=== PATIENT | male | born 1980 | race Caucasian/White ===

== ENCOUNTER 2016-10-23 08:58 | Emergency (ER) | payer OTHER ==
--- NOTE | 2016-10-23 13:12 | ED NURSING NOTES ---
Clinical Report - Nurses [facility] [address] [place] [address] 10/23/2016 8:59 Patient: ARMAND OAKLEY TRIAGE Triage time 09:12. Acuity: LEVEL 3. Alert. No acute distress. --09:21 Bryce Cisneros R.N. 09:11 10/23/16. BP: 173/109. HR: 98. RR: 20. O2 saturation: 98%. Temp: 98.5 F. --09:21 Bryce Cisneros R.N. 09:23 10/23/16. Pain level now 06/17. --09:23 Bryce Cisneros R.N. Chief Complaint: VOMITING. --13:38 Bryce Cisneros R.N. Weight: 58.9 kg stated. Height/Length: 69 inches Per Patient. BMI: 19.2. --09:20 Bryce Cisneros R.N. Medications Dilaudid Oral. Promethazine HCl Oral. Reglan Oral. Zofran ODT Oral. --09:19 Bryce Cisneros R.N. B 12. --09:19 Bryce Cisneros R.N. LORazepam Oral. --09:20 Bryce Cisneros R.N. Allergies Acetaminophen. NSAIDs. Sulfa Antibiotics. --09:19 Bryce Cisneros R.N. History Arrived by private vehicle. Historian: patient and family. ( Lap lysis of adhesions on 09/21/2016 at [facility]. States has had severe nausea and vomiting for past 3 days. Until 3 days ago was "Normal for me," which is daily vomiting. Reportedly had several feet of bowel removed for carcinoma 4 years ago.). Onset. (3 days ago). ( Worse since 2am). He has had nausea and vomiting. 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 SOCIAL HX: Former smoker. No alcohol use. FALL RISK ASSESSMENT: Fall risk assessment completed. No fall risk identified. FUNCTIONAL ASSESSMENT: Functional assessment: no impairments noted. LEARNING NEEDS ASSESSMENT: The learning needs assessment revealed no barriers. SKIN INTEGRITY ASSESSMENT: Skin integrity risk assessment completed. No skin integrity risk identified. --09: Bryce Cisneros R.N. PROBLEMS: Intestinal CA with METS. Diarrhea. Anxiety Reaction. Leukocytosis. Hypokalemia. Abnormal EKG. Abnormal Test. Palpitations. B12 deficiency. Crohn's Disease. Pancreatic Cancer. Hypertension. Back Pain. Tetanus Status. --: Bryce Cisneros R.N. Narcotic Withdrawal [RuleOut]. Abdominal Pain [RuleOut]. Vomiting [RuleOut]. --:20 Bryce Cisneros R.N. Interventions ID band on patient. To room. --09: Bryce Cisneros R.N. PHYSICAL ASSESSMENT ( patient states unable to void at this time). GENERAL / NEURO / PSYCH: Alert. Oriented X 4. Appears in pain and anxious. RESPIRATORY: Respirations not labored. GI / : Abdominal tenderness. Guarding present. Bowel sounds within normal limits. SKIN: Skin is warm and dry. --09:23 Bryce Cisneros R.N. NURSING PROGRESS NOTES Patient gowned. Patient identifiers checked. Call light placed in reach. Bed placed in lowest position. --09:23 Bryce Cisneros R.N. 10:12 10/23/2016 Site #1 started via IV in the right forearm with an 20g angiocath using a topical anesthetic and 1% intra-dermal lidocaine, with aseptic technique and good blood return; one attempt. Blood drawn: rainbow set. Labeled in the presence of the patient and sent to the lab. Saline lock flushed with 10 mL saline. --10:22 Bryce Cisneros R.N. 10:18 10/23/2016 HALDOL (Haloperidol Lactate) IVP 4 mg given over 2 minute(s) via site #1. --10:23 Bryce Cisneros R.N. 10:22 10/23/2016 Started bag #1 1000 mL IV Fluids IV NS (Saline); at 1000 mL/hr over 1 hour(s) via site #1 --10:22 Bryce Cisneros R.N. 10:22 10/23/2016 Benadryl (DiphenhydrAMINE HCl) IVP 50 mg given over 2 minute(s) via site #1. --10:22 Bryce Cisneros R.N. 11:03 10/23/2016 IV Fluids IV NS Discontinued: bag #1 completed. Total amount infused: 1000 mL. --11:03 Bryce Cisneros R.N. 11:04 10/23/2016 Started bag #2 1000 mL IV Fluids IV NS (Saline); at 1000 mL/hr over 1 hour(s) via site #1 --11:04 Bryce Cisneros R.N. 11:58 10/23/2016 Started bag #1 1000 mL IV Fluids IV NS (Saline); at 1000 mL/hr over 1 hour(s) via site #1 --11:58 Bryce Cisneros R.N. 12:30. ( Patient now shaking vigorously and states he believes Lorazapam would help.). --13:02 Bryce Cisneros R.N. 11:56 10/23/2016 IV Fluids IV NS Discontinued: bag #2 infused. Total amount infused: 1000 mL. IV patency established. IV site checked: no pain, redness, or swelling. IV flushed thoroughly. --13:41 Moncho Vega R.N. 11:58 10/23/2016 Started IV Fluids IV NS (Saline); at 1000 mL/hr over 60 minute(s) via site #1. Allergies verified and confirmed 5 rights. IV patency established. IV site checked: no pain, redness, or swelling. IV flushed thoroughly pre- and post-medication administration. --13:40 Moncho Vega R.N. <<STRICKEN ENTRY-- 12:58 10/23/2016 Started IV Fluids IV NS (Saline); at 1000 mL/hr over 60 minute(s) via site #1. Allergies verified and confirmed 5 rights. IV patency established. IV site checked: no pain, redness, or swelling. IV flushed thoroughly pre- and post-medication administration. --13:40 Moncho Vega R.N. --END STRIKE>> Correction. --13:40 Moncho Vega R.N. 13:00 10/23/2016 Site #1 removed upon discharge. Catheter intact. Manual pressure, pressure dressing and bandaid applied. --13:31 Moncho Vega R.N. 13:00 10/23/2016 IV Fluids IV NS Discontinued: bag #3 infused upon discharge. Total amount infused: 1000 mL. IV patency established. IV site checked: no pain, redness, or swelling. IV flushed thoroughly. --13:39 Moncho Vega R.N. 13:15 10/23/2016 Lorazepam (LORazepam) IVP 1 mg given over 2 minute(s) via site #1. Allergies verified, confirmed 5 rights and sedative warning given to the patient. IV patency established. IV site checked: no pain, redness, or swelling. IV flushed thoroughly pre- and post-medication administration. IVP given by RN. --13:30 Moncho Vega R.N. Intake & Output IV fluids: 3000 mL. --13:26 Bryce Cisneros R.N. Urine, with return of 100 mL adalberto-colored urine. --13:27 Bryce Cisneros R.N. DISPOSITION / DISCHARGE 13:27 10/23/16. BP: 149/82. HR: 90. RR: 20. O2 saturation: 98%. Temp: 99 F. Pain level now 8/10. --13:28 Bryce Cisneros R.N. Condition at departure: improved. No learning barriers present. Discharge instructions provided and reviewed with the patient. Patient verbalized understanding. Written instructions provided in [place]. The patient was discharged by the physician. He was discharged home. --13:37 Bryce Cisneros R.N. 13:20. Reviewed medication(s) (prescription given to pt). --13:51 Moncho Vega R.N. Departure time: 1320. --13:51 Moncho Vega R.N. Locked/Released at 10/23/2016 13:52 by Moncho Vega R.N.
--- NOTE | 2016-10-23 13:12 | ED ORDER SUMMARY ---
..... Patient: ARMAND OAKLEY OrderSheet [facility] VisitID: [id number] [address] [place] [address] 36y, M Registration Date/Time: 10/23/2016 ORDER SHEET Weight: 58.9 kg (stated) Allergies: Acetaminophen, NSAIDs, Sulfa Antibiotics GENERAL ORDERS: CBC w Diff Urgent (09:49 10/23/2016 Abril OCONNOR) (Ack 10:07 Kenzie) (13:01 GMarshall R.N.) CMP Urgent (:49 10/23/2016 Abril OCONNOR) (Ack 10:07 Kenzie) (13:01 GMarshall R.N.) UA-Culture if indicated Urgent (:10/23/2016 Abril OCONNOR) (Ack 10:07 Kenzie) (13:01 GMarshall R.N.) Lipase Urgent (:10/23/2016 Abril OCONNOR) (Ack 10:07 Kenzie) (13:01 GMarshall R.N.) MEDICATION ORDERS: IV FLUIDS: IV NS : initial bolus none -, then 1000 mL/hr for 2h (NOW); Urgent (2 liters of NS) (09:48 10/23/2016 Abril OCONNOR) (Ack 9:50 GMarshall R.N.) (10:22 GMarshall R.N.) Benadryl IV 50 mg (NOW) (09:48 10/23/2016 Abril OCONNOR) (Ack 9:50 GMarshall R.N.) (10:22 GMarshall R.N.) Haldol IV 4 mg (NOW) (09:49 10/23/2016 Abril OCONNOR) (Ack 9:50 GMarshall R.N.) (10:23 GMarshall R.N.) IV NS : initial bolus none -, then 1000 mL/hr for 1h (NOW); Urgent (11:26 10/23/2016 Abril OCONNOR) (11:58 GMarshall R.N.) LORazepam IV 1 mg (NOW) (13:08 10/23/2016 Abril OCONNOR) (13:30 JRomanelli R.N.) ORDER SHEET NOTES: [Electronically signed by Moncho Vega R.N. (13:52 10/23/2016)] [Electronically signed by Kevyn Castillo MD (12:34 10/24/2016)] [Electronically locked/signed by Moncho Vega R.N. (13:52 10/23/2016)]
--- NOTE | 2016-10-23 13:12 | ED ORDER SUMMARY ---
..... Patient: ARMAND OAKLEY OrderSheet [facility] VisitID: [id number] [address] [place] [address] 36y, M Registration Date/Time: 10/23/2016 ORDER SHEET Weight: 58.9 kg (stated) Allergies: Acetaminophen, NSAIDs, Sulfa Antibiotics GENERAL ORDERS: CBC w Diff Urgent (09:49 10/23/2016 Abril OCONNOR) (Ack 10:07 Kenzie) (13:01 GMarshall R.N.) CMP Urgent (:49 10/23/2016 Abril OCONNOR) (Ack 10:07 Kenzie) (13:01 GMarshall R.N.) UA-Culture if indicated Urgent (:10/23/2016 Abril OCONNOR) (Ack 10:07 Kenzie) (13:01 GMarshall R.N.) Lipase Urgent (:10/23/2016 Abril OCONNOR) (Ack 10:07 Kenzie) (13:01 GMarshall R.N.) MEDICATION ORDERS: IV FLUIDS: IV NS : initial bolus none -, then 1000 mL/hr for 2h (NOW); Urgent (2 liters of NS) (09:48 10/23/2016 Abril OCONNOR) (Ack 9:50 GMarshall R.N.) (10:22 GMarshall R.N.) Benadryl IV 50 mg (NOW) (09:48 10/23/2016 Abril OCONNOR) (Ack 9:50 GMarshall R.N.) (10:22 GMarshall R.N.) Haldol IV 4 mg (NOW) (09:49 10/23/2016 Abril OCONNOR) (Ack 9:50 GMarshall R.N.) (10:23 GMarshall R.N.) IV NS : initial bolus none -, then 1000 mL/hr for 1h (NOW); Urgent (11:26 10/23/2016 Abril OCONNOR) (11:58 GMarshall R.N.) LORazepam IV 1 mg (NOW) (13:08 10/23/2016 Abril OCONNOR) (13:30 JRomanelli R.N.) ORDER SHEET NOTES: [Electronically signed by Moncho Vega R.N. (13:52 10/23/2016)] [Electronically signed by Kevyn Castillo MD (12:34 10/24/2016)] [Electronically locked/signed by Moncho Vega R.N. (13:52 10/23/2016)]
--- NOTE | 2016-10-23 13:12 | ED CLINICAL REPORT ---
Clinical Report - Physicians/Mid Levels [facility] [address] [place] [address] 10/23/2016 8:59 Patient: ARMAND BALDERAS Time Seen: 09:41. Arrived- By private vehicle. Historian- patient. HISTORY OF PRESENT ILLNESS Chief Complaint: ABDOMINAL PAIN and VOMITING. At its maximum, severity described as severe. When seen in the E.D., severity described as moderate. Modifying factors. Not worsened by anything. Not relieved by anything. This started 3 - 4 days ago and is still present. It was abrupt in onset. It is described as "pain" and it is described as located in the right upper quadrant and in the suprapubic area. The patient has had nausea. He has had vomiting (8 times today, 10 - 12 times yesterday). He has had diarrhea (2 times today, 0 times yesterday). (Vomiting meds. Dilaudid Zofran and Regtlan). Similar symptoms previously: REVIEW OF SYSTEMS No constipation, black stools or stools or difficulty with urination or urination. No pain with urination, bloody stools or stools, fever or double vision. No ear pain, sore throat, chest pain, cough or difficulty breathing. No constipation, urinary frequency or skin rash. The patient has had abdominal pain, diarrhea, nausea and vomiting. PAST HISTORY PCP: Jaron Rodríguez (Oncologist) PAST HISTORY Anxiety Reaction. Crohn's Disease. 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 Prostatitis Back Pain. SOCIAL HISTORY Former smoker. ADDITIONAL NOTES The nursing notes have been reviewed. PHYSICAL EXAM Vital Signs: 10/23/2016 13:27 BP: 149/82. HR: 90. RR: 20. O2 saturation: 98%. Temp: 99 F. 10/23/2016 09:11 BP: 173/109. HR: 98. RR: 20. O2 saturation: 98%. Temp: 98.5 F. Appearance: Alert. Patient in severe distress. Eyes: Eyes normal inspection. ENT: Dry mucous membranes present. Neck: Normal inspection. CVS: Normal heart rate and rhythm. Heart sounds normal. Abdomen: Tenderness in the left side of the abdomen and suprapubic area (Marked tenderness with skin palpation). Back: Normal inspection. : Normal genitalia. Testes descended. Skin: Skin warm. Normal skin color. Extremities: Extremities exhibit normal ROM. Neuro: No alteration in mental status. LABS, X-RAYS, AND EKG Laboratory Tests: UA-Culture if indicated: (AMANDA: 10/23/2016 12:05) ( [facility] 10/23/2016 12:29) Final results Test Result Flag Units (Reference) URINE COLOR YELLOW URINE APPEARANCE CLEAR URINE GLUCOSE NEGATIVE (NEGATIVE) URINE BILIRUBIN NEGATIVE (NEGATIVE) URINE KETONE 1+ (NEGATIVE) URINE SPECIFIC GRAVITY 1.025 (1.010-1.030) URINE PH 6.0 (5.0-8.0) URINE PROTEIN NEGATIVE (NEGATIVE) URINE UROBILINOGEN 0.2 EU/dL (0.2-1.0) URINE NITRITE NEGATIVE (NEGATIVE) URINE BLOOD NEGATIVE (NEGATIVE) URINE LEUK ESTERASE NEGATIVE (NEGATIVE) URINE RBC NONE SEEN rbc/hpf (0-1) URINE WBC 0-1 wbc/hpf (0-1) URINE EPITHELIAL CELLS 0-1 EPI/hpf (0-5) URINE BACTERIA NONE SEEN (NONE SEEN) URINE COMMENT CULT NOT INDICATED 1+ MUCOUSURINE CULTURES ARE SET-UP BASED ON THE FOLLOWING CRITERIA:POSITIVE NITRITEPOSITIVE LEUKOCYTE ESTERASEGREATER THAN 10 WHITE BLOOD CELLSMODERATE (2+) OR GREATER BACTERIA CBC w Diff: (AMANDA: 10/23/2016 10:10) ( [facility] 10/23/2016 10:50) Final results Test Result Flag Units (Reference) WHITE BLOOD COUNT 10.4 K/uL (4.5-11.5) RED BLOOD COUNT 4.94 M/uL (4.50-5.90) HEMOGLOBIN 13.7 gm/dL (13.5-17.5) HEMATOCRIT 42.8 % (41.0-53.0) MEAN CELL VOLUME 87 fL (80-100) MEAN CORPUSCULAR HGB 28 pg (26-34) MEAN CORPUSCULAR HGB CONC 32 g/dL (31-37) RED CELL DISTRIBUTION WIDTH 14.3 % (11.6-14.8) PLATELET COUNT 281 K/uL (150-400) POLY % 80 H % (50-75) BAND % 0 % (0-8) LYMPH 16 L % (25-40) MONO 2 L % (3-14) EOSINOPHIL % 2 % (0-4) BASOPHIL % 0 % (0-2) METAMYELOCYTE % 0 % (0-1) MYELOCYTE 0 % (0-1) OTHER CELL TYPE 0 ANISOCYTOSIS 1+ CMP: (AMANDA: 10/23/2016 10:10) ( [facility] 10/23/2016 10:34) Final results Test Result Flag Units (Reference) GLUCOSE 106 mg/dL (70-110) BUN 8 mg/dL (7-18) CREATININE 0.9 mg/dL (0.6-1.3) Estimated GFR >60 mL/min Estimated GFR- >60 mL/min Note: Persistent reduction over 3 months in eGFR<60 mL/min/1.73 m2 defines CKD. Patients with eGFR values>=60 mL/min/1.73 m2 may also have CKD if evidence ofpersistent proteinuria. Additional information may be foundat www.kidney.org. SODIUM 130 L mmol/L (136-145) POTASSIUM 3.6 mmol/L (3.5-5.1) CHLORIDE 102 mmol/L (98-107) CARBON DIOXIDE 27 mmol/L (21-32) CALCIUM 9.0 mg/dL (8.5-10.1) TOTAL PROTEIN 7.5 g/dL (6.4-8.2) ALBUMIN 4.4 g/dL (3.3-5.0) BILIRUBIN, TOTAL 0.4 mg/dL (0.0-1.0) ALKALINE PHOSPHATASE 72 U/L (46-116) AST (SGOT) 13 L U/L (15-37) ALT (SGPT) 20 U/L (12-78) LIPASE 83 U/L (73-393) . PROGRESS AND PROCEDURES Course of Care: Mr. Balderas has recurrent episodes of abdominal pain and diarrhea. He is given 3 liters of NS and now is fully rehydrated. His pain is better after Benadyl and Haldol. Ultimately he was given Lorazepam when it was discovered that he was our of his chronic Lorazepam. 13:08 10/23/16. Recheck - I am out of lorazepam. Disposition: Discharged. Condition: improved. CLINICAL IMPRESSION Abdominal pain of unknown cause. INSTRUCTIONS (ASK YOUR DR ABOUT THE LORAZEPAM YOU MAY WANT TO TAPER OFF THE LORAZEPAM RECHECK IF STILL VOMITING OR HAVING ABDOMINAL PAIN IN 12 -24 HOURS.). Prescription Medications: Phenergan 25 mg tablets: Take 1 tablet orally every 6 hours as needed for nausea and vomiting. Dispense fifteen (15). No refills. Substitution is permissible. Lorazepam 1 mg: take 1 orally. Dispense five (5). No refill. Follow-up: Follow up with your doctor néstor Sunday as scheduled. Understanding of the discharge instructions verbalized by patient. (Electronically signed by Kevyn Castillo MD 10/24/2016 12:34)
--- NOTE | 2016-10-24 12:35 | ED DISCHARGE INSTRUCTIONS ---
Patient: ARMAND OAKLEY General Instructions [facility] VisitID: [id number] [address] [place] [address] 36y, M Registration Date/Time: 10/23/2016 Abdominal pain of unknown cause. INSTRUCTIONS (ASK YOUR DR ABOUT THE LORAZEPAM YOU MAY WANT TO TAPER OFF THE LORAZEPAM RECHECK IF STILL VOMITING OR HAVING ABDOMINAL PAIN IN 12 -24 HOURS.). Prescription Medications: Phenergan 25 mg tablets: Take 1 tablet orally every 6 hours as needed for nausea and vomiting. Dispense fifteen (15). No refills. Substitution is permissible. Lorazepam 1 mg: take 1 orally. Dispense five (5). No refill. Follow-up: Follow up with your doctor Sunday as scheduled. Understanding of the discharge instructions verbalized by patient. ADDITIONAL INFORMATION Abdominal Pain,Uncertain Cause [Male] Based on your visit today, the exact cause of your abdominalpain is not clear. Your exam and tests do not indicate a dangerous cause at this time. However, the signs of a serious problem may take more time to appear. Although your evaluation was reassuring today, sometimes early in the course of many conditions, exam and lab tests can appear normal. Therefore, it is important for you to watch for any new symptoms or worsening of your condition. Causes It may not be obvious what caused your symptoms. Pay attention to things that do seem to make your symptoms worse or better and discuss this with your doctor when you follow up. Diagnosis The evaluation of abdominal pain in the emergency department may onlyrequire an exam by the doctor or it may include blood, urine or imaging studies, depending on many factors. Sometimes exams and tests can identify a cause but in many cases, a clear cause is not found. Further testing at follow up visits may help to suggest a clear diagnosis. Home Care Rest as much as possible until your next exam. Try to avoid any medications (unless otherwise directed by your doctor), foods, activities, or other factors that you may have contributed to your symptoms. Try to eat foods that you know that you have tolerated well in the past. Certain diets may be recommended for some conditions that cause abdominal pain. However, since the cause of your symptoms may not be clear, discuss your diet more with your primary care provider or specialist for further recommendations. Eating several small meals per day as opposed to 2 or 3 larger meals may help. Monitor closely for anything that may make your symptoms worse or better. Pay close attention to symptoms below that may indicate worsening of your condition. Follow Up and Precautions See your doctoras instructed or sooneror if your symptoms are not improving.In some cases, you may need more testing. When to Seek Medical Attention Contact your doctor or see medical attention ifany of the following occur: Pain is becoming worse You are unable to take your medications due to excessive vomiting Swelling of the abdomen Fever of 100.4F (38C) or higher, or as directed by your health care provider Blood in vomit or bowel movements (dark red or black color) Jaundice (yellow color of eyes and skin) New onset of weakness, dizziness or fainting New onset of chest, arm, back, neck or jaw pain Lorazepam Oral tablet What is this medicine? LORAZEPAM (keya A ze maritza) is a benzodiazepine. It is used to treat anxiety. How should I use this medicine? Take this medicine by mouth with a glass of water. Follow the directions on the prescription label. If it upsets your stomach, take it with food or milk. Take your medicine at regular intervals. Do not take it more often than directed. Do not stop taking except on the advice of your doctor or health critical care unit nurse. Talk to your skin lap bonder regarding the use of this medicine in children. Special care may be needed. What side effects may I notice from receiving this medicine? Side effects that you should report to your doctor or health critical care unit nurse as soon as possible: changes in vision confusion depression mood changes, excitability or aggressive behavior movement difficulty, staggering or jerky movements muscle cramps restlessness weakness or tiredness Side effects that usually do not require medical attention (report to your doctor or health critical care unit nurse if they continue or are bothersome): constipation or diarrhea difficulty sleeping, nightmares dizziness, drowsiness headache nausea, vomiting What may interact with this medicine? barbiturate medicines for inducing sleep or treating seizures, like phenobarbital clozapine medicines for depression, mental problems or psychiatric disturbances medicines for sleep phenytoin probenecid theophylline valproic acid What if I miss a dose? If you miss a dose, take it as soon as you can. If it is almost time for your next dose, take only that dose. Do not take double or extra doses. Where should I keep my medicine? Keep out of the reach of children. This medicine can be abused. Keep your medicine in a safe place to protect it from theft. Do not share this medicine with anyone. Selling or giving away this medicine is dangerous and against the law. Store at room temperature between 20 and 25 degrees C (68 and 77 degrees F). Protect from light. Keep container tightly closed. Throw away any unused medicine after the expiration date. What should I tell my health care provider before I take this medicine? They need to know if you have any of these conditions: alcohol or drug abuse problem bipolar disorder, depression, psychosis or other mental health condition glaucoma kidney or liver disease lung disease or breathing difficulties myasthenia gravis Parkinson's disease seizures or a history of seizures suicidal thoughts an unusual or allergic reaction to lorazepam, other benzodiazepines, foods, dyes, or preservatives or trying to get breast-feeding What should I watch for while using this medicine? Visit your doctor or health critical care unit nurse for regular checks on your progress. Your body may become dependent on this medicine, ask your doctor or health critical care unit nurse if you still need to take it. However, if you have been taking this medicine regularly for some time, do not suddenly stop taking it. You must gradually reduce the dose or you may get severe side effects. Ask your doctor or health critical care unit nurse for advice before increasing or decreasing the dose. Even after you stop taking this medicine it can still affect your body for several days. You may get drowsy or dizzy. Do not drive, use machinery, or do anything that needs mental alertness until you know how this medicine affects you. To reduce the risk of dizzy and fainting spells, do not stand or sit up quickly, especially if you are an older patient. Alcohol may increase dizziness and drowsiness. Avoid alcoholic drinks. Do not treat yourself for coughs, colds or allergies without asking your doctor or health critical care unit nurse for advice. Some ingredients can increase possible side effects. You have been given the following additional information: Abdominal Pain, Unknown Cause, (Male) Lorazepam Oral tablet (Electronically signed by Kevyn Castillo MD 10/24/2016 12:34)
--- NOTE | 2016-10-24 12:35 | ED MAR SUMMARY ---
..... Medication Administration Record [facility] [address] [place] [place] [address] Patient: ARMAND OAKLEY Visit ID: [id number] 36y, M Weight: 58.9 kg Height/Length: 69 in BMI: 19.2 ALLERGIES: Acetaminophen, NSAIDs, Sulfa Antibiotics Given 10:18 10/23/2016 Bryce Cisneros R.N. Medication Administered: HALDOL [IVP] (HALOPERIDOL LACTATE), Dose: 4 mg IVP over 2 minute(s), Site: #1 right forearm. Medication Ordered: Haldol IV 4 mg (NOW). Start 10:22 10/23/2016 Bryce Cisneros R.N., Stop 11:03 10/23/2016 Bryce Cisneros R.N. Medication Administered: IV NS (SALINE), Dose: IV Fluids over 1 hour(s), Rate: 1000 mL/hr, Dispensed: 1000 mL bag, Site: #1 right forearm. Medication Ordered: IV NS : initial bolus none -, then 1000 mL/hr for 2h (NOW); Urgent (2 liters of NS). Given 10:10/23/2016 Bryce Cisneros R.N. Medication Administered: BENADRYL [IVP] (DIPHENHYDRAMINE HCL), Dose: 50 mg IVP over 2 minute(s), Site: #1 right forearm. Medication Ordered: Benadryl IV 50 mg (NOW). Start 11:04 10/23/2016 Bryce Cisneros R.N., Stop 11:56 10/23/2016 Moncho Vega R.N. Medication Administered: IV NS (SALINE), Dose: IV Fluids over 1 hour(s), Rate: 1000 mL/hr, Dispensed: 1000 mL bag, Site: #1 right forearm. Medication Ordered: IV NS : initial bolus none -, then 1000 mL/hr for 2h (NOW); Urgent (2 liters of NS). Start 11:58 10/23/2016 Bryce Cisneros R.N., Stop 13:00 10/23/2016 Moncho Vega R.N. Medication Administered: IV NS (SALINE), Dose: IV Fluids over 1 hour(s), Rate: 1000 mL/hr, Dispensed: 1000 mL bag, Site: #1 right forearm. Medication Ordered: IV NS : initial bolus none -, then 1000 mL/hr for 1h (NOW); Urgent. Start 11:58 10/23/2016 Moncho Vega [place]. Medication Administered: IV NS (SALINE), Dose: IV Fluids over 60 minute(s), Rate: 1000 mL/hr, Site: #1 right forearm. Medication Ordered: IV NS : initial bolus none -, then 1000 mL/hr for 1h (NOW); Urgent. Given 13:15 10/23/2016 Moncho Vega [place]. Medication Administered: LORAZEPAM [IVP] (LORAZEPAM), Dose: 1 mg IVP over 2 minute(s), Site: #1. Medication Ordered: LORazepam IV 1 mg (NOW).
--- NOTE | 2016-10-24 12:35 | ED MAR SUMMARY ---
..... Medication Administration Record [facility] [address] [place] [address] Patient: ARMAND OAKLEY Visit ID: [id number] 36y, M Weight: 58.9 kg Height/Length: 69 in BMI: 19.2 ALLERGIES: Acetaminophen, NSAIDs, Sulfa Antibiotics Given 10:18 10/23/2016 Bryce Cisneros R.N. Medication Administered: HALDOL [IVP] (HALOPERIDOL LACTATE), Dose: 4 mg IVP over 2 minute(s), Site: #1 right forearm. Medication Ordered: Haldol IV 4 mg (NOW). Start 10:22 10/23/2016 Bryce Cisneros R.N., Stop 11:03 10/23/2016 Bryce Cisneros R.N. Medication Administered: IV NS (SALINE), Dose: IV Fluids over 1 hour(s), Rate: 1000 mL/hr, Dispensed: 1000 mL bag, Site: #1 right forearm. Medication Ordered: IV NS : initial bolus none -, then 1000 mL/hr for 2h (NOW); Urgent (2 liters of NS). Given 10:10/23/2016 Bryce Cisneros R.N. Medication Administered: BENADRYL [IVP] (DIPHENHYDRAMINE HCL), Dose: 50 mg IVP over 2 minute(s), Site: #1 right forearm. Medication Ordered: Benadryl IV 50 mg (NOW). Start 11:04 10/23/2016 Bryce Cisneros R.N., Stop 11:56 10/23/2016 Moncho Vega R.N. Medication Administered: IV NS (SALINE), Dose: IV Fluids over 1 hour(s), Rate: 1000 mL/hr, Dispensed: 1000 mL bag, Site: #1 right forearm. Medication Ordered: IV NS : initial bolus none -, then 1000 mL/hr for 2h (NOW); Urgent (2 liters of NS). Start 11:58 10/23/2016 Bryce Cisneros R.N., Stop 13:00 10/23/2016 Moncho Vega R.N. Medication Administered: IV NS (SALINE), Dose: IV Fluids over 1 hour(s), Rate: 1000 mL/hr, Dispensed: 1000 mL bag, Site: #1 right forearm. Medication Ordered: IV NS : initial bolus none -, then 1000 mL/hr for 1h (NOW); Urgent. Start 11:58 10/23/2016 Moncho Vega [place]. Medication Administered: IV NS (SALINE), Dose: IV Fluids over 60 minute(s), Rate: 1000 mL/hr, Site: #1 right forearm. Medication Ordered: IV NS : initial bolus none -, then 1000 mL/hr for 1h (NOW); Urgent. Given 13:15 10/23/2016 Moncho Vega [place]. Medication Administered: LORAZEPAM [IVP] (LORAZEPAM), Dose: 1 mg IVP over 2 minute(s), Site: #1. Medication Ordered: LORazepam IV 1 mg (NOW).
--- NOTE | 2016-10-24 12:35 | ED MED RECONCILIATION SUMMARY ---
Patient: ARMAND OAKLEY Medication Reconciliation Report [facility] VisitID: [id number] [address] [place] [address] 36y, M Registration Date/Time: 10/23/2016 Weight: 58.9 kg Height/Length: 69 in. BMI: 19.2 ALLERGIES: Acetaminophen, NSAIDs, Sulfa Antibiotics The patient's Home Medications are listed below: THE FOLLOWING MEDICATIONS NEED TO BE RECONCILED: B 12 Dilaudid Oral LORazepam Oral Promethazine HCl Oral Reglan Oral Zofran ODT Oral The source(s) of the original Home Medication information: Not obtained. The following Medications were given to the patient in the Emergency Department: IV NS IV Fluids bolus 0, then 1000 mL/hr, administered: 10/23/2016 10:22:00 AM Benadryl [IVP] IVP 50 mg, administered: 10/23/2016 10:22:00 AM HALDOL [IVP] IVP 4 mg, administered: 10/23/2016 10:18:00 AM IV NS IV Fluids bolus 0, then 1000 mL/hr, administered: 10/23/2016 11:04:00 AM IV NS IV Fluids bolus 0, then 1000 mL/hr, administered: 10/23/2016 11:58:00 AM Lorazepam [IVP] IVP 1 mg, administered: 10/23/2016 1:15:00 PM IV NS IV Fluids bolus 0, then 1000 mL/hr, administered: 10/23/2016 11:58:00 AM The following Medications were prescribed to the patient: Phenergan 25 mg tablets: Take 1 tablet orally every 6 hours as needed for nausea and vomiting. Dispense fifteen (15). No refills. Substitution is permissible. -- Kevyn Castillo MD Lorazepam 1 mg: take 1 orally. Dispense five (5). No refill. -- Kevyn Castillo MD
--- NOTE | 2016-10-24 12:35 | ED DISCHARGE INSTRUCTIONS ---
Patient: ARMAND OAKLEY General Instructions [facility] VisitID: [id number] [place] [address] 36y, M Registration Date/Time: 10/23/2016 Abdominal pain of unknown cause. INSTRUCTIONS (ASK YOUR DR ABOUT THE LORAZEPAM YOU MAY WANT TO TAPER OFF THE LORAZEPAM RECHECK IF STILL VOMITING OR HAVING ABDOMINAL PAIN IN 12 -24 HOURS.). Prescription Medications: Phenergan 25 mg tablets: Take 1 tablet orally every 6 hours as needed for nausea and vomiting. Dispense fifteen (15). No refills. Substitution is permissible. Lorazepam 1 mg: take 1 orally. Dispense five (5). No refill. Follow-up: Follow up with your doctor Sunday as scheduled. Understanding of the discharge instructions verbalized by patient. ADDITIONAL INFORMATION Abdominal Pain,Uncertain Cause [Male] Based on your visit today, the exact cause of your abdominalpain is not clear. Your exam and tests do not indicate a dangerous cause at this time. However, the signs of a serious problem may take more time to appear. Although your evaluation was reassuring today, sometimes early in the course of many conditions, exam and lab tests can appear normal. Therefore, it is important for you to watch for any new symptoms or worsening of your condition. Causes It may not be obvious what caused your symptoms. Pay attention to things that do seem to make your symptoms worse or better and discuss this with your doctor when you follow up. Diagnosis The evaluation of abdominal pain in the emergency department may onlyrequire an exam by the doctor or it may include blood, urine or imaging studies, depending on many factors. Sometimes exams and tests can identify a cause but in many cases, a clear cause is not found. Further testing at follow up visits may help to suggest a clear diagnosis. Home Care Rest as much as possible until your next exam. Try to avoid any medications (unless otherwise directed by your doctor), foods, activities, or other factors that you may have contributed to your symptoms. Try to eat foods that you know that you have tolerated well in the past. Certain diets may be recommended for some conditions that cause abdominal pain. However, since the cause of your symptoms may not be clear, discuss your diet more with your primary care provider or specialist for further recommendations. Eating several small meals per day as opposed to 2 or 3 larger meals may help. Monitor closely for anything that may make your symptoms worse or better. Pay close attention to symptoms below that may indicate worsening of your condition. Follow Up and Precautions See your doctoras instructed or sooneror if your symptoms are not improving.In some cases, you may need more testing. When to Seek Medical Attention Contact your doctor or see medical attention ifany of the following occur: Pain is becoming worse You are unable to take your medications due to excessive vomiting Swelling of the abdomen Fever of 100.4F (38C) or higher, or as directed by your health care provider Blood in vomit or bowel movements (dark red or black color) Jaundice (yellow color of eyes and skin) New onset of weakness, dizziness or fainting New onset of chest, arm, back, neck or jaw pain Lorazepam Oral tablet What is this medicine? LORAZEPAM (keya A ze maritza) is a benzodiazepine. It is used to treat anxiety. How should I use this medicine? Take this medicine by mouth with a glass of water. Follow the directions on the prescription label. If it upsets your stomach, take it with food or milk. Take your medicine at regular intervals. Do not take it more often than directed. Do not stop taking except on the advice of your doctor or health acute care registered nurse. Talk to your post tensioning ironworker helper regarding the use of this medicine in children. Special care may be needed. What side effects may I notice from receiving this medicine? Side effects that you should report to your doctor or health acute care registered nurse as soon as possible: changes in vision confusion depression mood changes, excitability or aggressive behavior movement difficulty, staggering or jerky movements muscle cramps restlessness weakness or tiredness Side effects that usually do not require medical attention (report to your doctor or health acute care registered nurse if they continue or are bothersome): constipation or diarrhea difficulty sleeping, nightmares dizziness, drowsiness headache nausea, vomiting What may interact with this medicine? barbiturate medicines for inducing sleep or treating seizures, like phenobarbital clozapine medicines for depression, mental problems or psychiatric disturbances medicines for sleep phenytoin probenecid theophylline valproic acid What if I miss a dose? If you miss a dose, take it as soon as you can. If it is almost time for your next dose, take only that dose. Do not take double or extra doses. Where should I keep my medicine? Keep out of the reach of children. This medicine can be abused. Keep your medicine in a safe place to protect it from theft. Do not share this medicine with anyone. Selling or giving away this medicine is dangerous and against the law. Store at room temperature between 20 and 25 degrees C (68 and 77 degrees F). Protect from light. Keep container tightly closed. Throw away any unused medicine after the expiration date. What should I tell my health care provider before I take this medicine? They need to know if you have any of these conditions: alcohol or drug abuse problem bipolar disorder, depression, psychosis or other mental health condition glaucoma kidney or liver disease lung disease or breathing difficulties myasthenia gravis Parkinson's disease seizures or a history of seizures suicidal thoughts an unusual or allergic reaction to lorazepam, other benzodiazepines, foods, dyes, or preservatives or trying to get breast-feeding What should I watch for while using this medicine? Visit your doctor or health acute care registered nurse for regular checks on your progress. Your body may become dependent on this medicine, ask your doctor or health acute care registered nurse if you still need to take it. However, if you have been taking this medicine regularly for some time, do not suddenly stop taking it. You must gradually reduce the dose or you may get severe side effects. Ask your doctor or health acute care registered nurse for advice before increasing or decreasing the dose. Even after you stop taking this medicine it can still affect your body for several days. You may get drowsy or dizzy. Do not drive, use machinery, or do anything that needs mental alertness until you know how this medicine affects you. To reduce the risk of dizzy and fainting spells, do not stand or sit up quickly, especially if you are an older patient. Alcohol may increase dizziness and drowsiness. Avoid alcoholic drinks. Do not treat yourself for coughs, colds or allergies without asking your doctor or health acute care registered nurse for advice. Some ingredients can increase possible side effects. You have been given the following additional information: Abdominal Pain, Unknown Cause, (Male) Lorazepam Oral tablet (Electronically signed by Kevyn Castillo MD 10/24/2016 12:34)
--- NOTE | 2016-10-24 12:35 | ED MED RECONCILIATION SUMMARY ---
Patient: ARMAND OAKLEY Medication Reconciliation Report [facility] VisitID: [id number] [address] [place] [address] 36y, M Registration Date/Time: 10/23/2016 Weight: 58.9 kg Height/Length: 69 in. BMI: 19.2 ALLERGIES: Acetaminophen, NSAIDs, Sulfa Antibiotics The patient's Home Medications are listed below: THE FOLLOWING MEDICATIONS NEED TO BE RECONCILED: B 12 Dilaudid Oral LORazepam Oral Promethazine HCl Oral Reglan Oral Zofran ODT Oral The source(s) of the original Home Medication information: Not obtained. The following Medications were given to the patient in the Emergency Department: IV NS IV Fluids bolus 0, then 1000 mL/hr, administered: 10/23/2016 10:22:00 AM Benadryl [IVP] IVP 50 mg, administered: 10/23/2016 10:22:00 AM HALDOL [IVP] IVP 4 mg, administered: 10/23/2016 10:18:00 AM IV NS IV Fluids bolus 0, then 1000 mL/hr, administered: 10/23/2016 11:04:00 AM IV NS IV Fluids bolus 0, then 1000 mL/hr, administered: 10/23/2016 11:58:00 AM Lorazepam [IVP] IVP 1 mg, administered: 10/23/2016 1:15:00 PM IV NS IV Fluids bolus 0, then 1000 mL/hr, administered: 10/23/2016 11:58:00 AM The following Medications were prescribed to the patient: Phenergan 25 mg tablets: Take 1 tablet orally every 6 hours as needed for nausea and vomiting. Dispense fifteen (15). No refills. Substitution is permissible. -- Kevyn Castillo MD Lorazepam 1 mg: take 1 orally. Dispense five (5). No refill. -- Kevyn Castillo MD
== END 2016-10-23 13:20 | disposition home or self-care (01) ==
LOC: ED SRH 08:58
DX: R10.11 Right upper quadrant pain (principal); I10 Essential (primary) hypertension; Z87.891 Personal history of nicotine dependence; Z88.2 Allergy status to sulfonamides; Z88.8 Allergy status to other drugs, medicaments and biological substances
CPT/HCPCS: 90004; 90100; 91643; 92235; 95059

== ENCOUNTER 2016-12-14 12:58 | Emergency (ER) | payer OTHER ==
--- NOTE | 2016-12-14 17:38 | ED NURSING NOTES ---
Clinical Report - Nurses [facility] [address] [place] [address] 12/14/2016 12:58 Patient: ARMAND OAKLEY TRIAGE Triage time 13:30 Dec 14 2016. --14:04 Moncho Vega R.N. 14:03 12/14/16. BP: 146/84. HR: 75. RR: 16. O2 saturation: 97% on room air. Temp: 99.5 F. Pain level now: 06/17. --14:04 Moncho Vega R.N. Acuity: LEVEL 3. Chief Complaint: ABDOMINAL PAIN, NAUSEA, VOMITING and DIARRHEA. Alert. GONZÁLEZ COMA SCORE: González Coma Scale: 15- eyes open spontaneously (4); best verbal response- oriented x 4 (5); best motor response- obeys commands (6). --14:13 Moncho Vega R.N. Weight: 64.8 kg stated. Height/Length: 68 inches Per Patient. BMI: 21.7. --13:30 Moncho Vega R.N. Medications Dilaudid Oral (Tablet 8 mg) 1 tablet, 5 x daily. LORazepam Oral 1 mg, 3x a day. Promethazine HCl Oral 25 mg suppos, daily as needed. Reglan Oral 10 mg, 4x a day. Zofran ODT Oral (Tablet Dispersible 4 mg) 1 tablet, 6 x daily. --14:07 Moncho Vega R.N. Allergies Acetaminophen. Definite Severe (Can't digest this Rx) NSAIDs. Definite Moderate (Vsn'y digest this Rx) Sulfa Antibiotics. Definite Severe(nausea) --14:07 Moncho Vega R.N. History Arrived by private vehicle. Historian: patient. Accompanied by family. Primary physician (Scott). ( Abdominal Pain associated with N/V/D and shakiness. Pt states that he has been unable to take his narcotic meds for his chronic abdominal pain.). The patient has had nausea, vomiting, diarrhea and abdominal pain. Treatment STORAGE MANAGER: (Phenergan Suppository). PAST MEDICAL HX: Immunizations: up-to-date. SOCIAL HX: Former smoker, end date 09/2016. History of drug use: marijuana. No alcohol use. No recent travel. No known contact with a sick individual. ABUSE ASSESSMENT: No report of abuse. NUTRITIONAL RISK ASSESSMENT: The nutritional risk assessment revealed no deficiencies. FUNCTIONAL ASSESSMENT: Functional assessment: no impairments noted. LEARNING NEEDS ASSESSMENT: The learning needs assessment revealed no barriers. SKIN INTEGRITY ASSESSMENT: Skin integrity risk assessment completed. No skin integrity risk identified. --14:13 Moncho Vega R.N. PROBLEMS: Abdominal Pain. Intestinal CA with METS. Diarrhea. Leukocytosis. Hypokalemia. Abnormal EKG. Abnormal Test. Palpitations. B12 deficiency. Crohn's Disease. Hypertension. Back Pain. --14:12 Moncho Vega R.N. Narcotic Withdrawal [RuleOut]. Abdominal Pain [RuleOut]. Vomiting [RuleOut]. --14:12 Moncho Vega R.N. ADDITIONAL SURGERIES: Bowel Resection. Bowel Surgery. Laparotomy. --14:12 Moncho Vega R.N. Interventions ID and allergy band on patient. To treatment room. --14:13 Moncho Vega R.N. PHYSICAL ASSESSMENT Ambulatory to room. GENERAL / NEURO / PSYCH: Alert. Oriented X 4. Appears in pain. HEENT: Mucous membranes are pink. RESPIRATORY: Respirations not labored. CVS: Cardiac rhythm: (RRR). GI / : Abdominal tenderness. SKIN: Skin is warm and dry. --14:13 Moncho Vega R.N. NURSING PROGRESS NOTES Patient gowned. Reassurance given to the patient and patient's family. Patient identifiers checked. Side rails up x 1. Bed placed in lowest position. Brakes of bed on. Patient ready for evaluation- chart flagged and ED physician notified. --14:14 Moncho Vega R.N. 13:50 12/14/2016 Site #1 started via IV in the right hand with an 20g angiocath; one attempt. Blood drawn: rainbow set. Labeled in the presence of the patient and sent to the lab. Saline lock flushed with 10 mL saline (start by HUNTER Merlos). --14:16 Moncho Vega R.N. 13:51 12/14/2016 Started bag #1 1000 mL IV Fluids IV NS (Saline); at 1000 mL/hr over 60 minute(s) via site #1 via IV pump. Allergies verified and confirmed 5 rights. IV patency established. IV site checked: no pain, redness, or swelling. IV flushed thoroughly pre- and post-medication administration. --14:16 Moncho Vega R.N. 13:52 12/14/2016 Zofran (Ondansetron HCl) IVP 4 mg given over 2 minute(s) via site #1. Allergies verified and confirmed 5 rights. IV patency established. IV site checked: no pain, redness, or swelling. IV flushed thoroughly pre- and post-medication administration. IVP given by RN. --14:52 Moncho Vega R.N. 14:51 12/14/2016 IV Fluids IV NS Bag Change: bag #1 infused. Total amount infused: 1000. STARTED bag #2 (1000 mL) at 1000 mL/hr via IV pump. Confirmed 5 rights. IV patency established. IV site checked: no pain, redness, or swelling. IV flushed thoroughly. --14:51 Moncho Vega R.N. 15:28 12/14/2016 Benadryl (DiphenhydrAMINE HCl) IVP 50 mg given over 2 minute(s) via site #1. Allergies verified, confirmed 5 rights and sedative warning given. IV patency established. IV site checked: no pain, redness, or swelling. IV flushed thoroughly pre- and post-medication administration. IVP given by RN. --15:37 Moncho Vega R.N. 15:32 12/14/2016 HALDOL (Haloperidol Lactate) IVP 4 mg given over 2 minute(s) via site #1. Allergies verified, confirmed 5 rights and sedative warning given to the patient. IV patency established. IV site checked: no pain, redness, or swelling. IV flushed thoroughly pre- and post-medication administration. IVP given by RN. --15:37 Moncho Vega R.N. 15:50 12/14/16. Patient ID band checked for patient name, birthdate and medical record number: patient confirmed. Instructions provided to collect clean catch urine and patient verbalized understanding. Clean catch urine collected with return of yellow-colored clear urine; odor is normal; sample sent to lab for urinalysis, culture and drug screen. Specimen labeled in the presence of the patient. --15:54 Moncho Vega R.N. 15:55 12/14/2016 IV Fluids IV NS Bag Change: bag #2 infused. Total amount infused: 1000. STARTED bag #3 (1000 mL) at 500 mL/hr via IV pump. Confirmed 5 rights. IV patency established. IV site checked: no pain, redness, or swelling. IV flushed thoroughly. --18:04 Moncho Vega R.N. 16:36 12/14/2016 Lorazepam (LORazepam) IVP 0.5 mg given over 2 minute(s) via site #1. Allergies verified, confirmed 5 rights and sedative warning given to the patient. IV patency established. IV site checked: no pain, redness, or swelling. IV flushed thoroughly pre- and post-medication administration. IVP given by RN. --16:46 Moncho Vega R.N. Warming measures: blanket applied. --16:51 Dipti, Geoffrey 17:05 12/14/2016 HALDOL (Haloperidol Lactate) IVP 3 mg given over 2 minute(s) via site #1. Allergies verified, confirmed 5 rights and sedative warning given. IV patency established. IV site checked: no pain, redness, or swelling. IV flushed thoroughly pre- and post-medication administration. IVP given by RN. --17:05 Moncho Vega R.N. 17:10 12/14/2016 Site #1 removed upon discharge. Catheter intact. Pressure dressing, bandaid and bandage applied. --18:08 Moncho Vega R.N. 17:10 12/14/2016 IV Fluids IV NS Discontinued: bag #3 discontinued upon discharge. Total amount infused: 750 mL. IV patency established. IV site checked: no pain, redness, or swelling. IV flushed thoroughly. --18:07 Moncho Vega R.N. DISPOSITION / DISCHARGE 17:10 12/14/16. BP: 137/78. HR: 98. RR: 16. O2 saturation: 98% on room air. Temp: 99.2 F. Pain level now: 05/17. --17:59 Moncho Vega R.N. Departure time: 1714. --17:59 Moncho Vega R.N. 17:15. Condition at departure: improved. No learning barriers present. Discharge instructions provided and reviewed with the patient. Reviewed medication(s) precautions and dosing information (continue your usual prescribed medications). Reviewed referral to family practice for followup. Patient verbalized understanding. Written instructions provided in Austrian. The patient was discharged by the physician. He was discharged home and accompanied by family. He left the Emergency Department ambulatory and via private vehicle. Family member driving. --18:05 Moncho Vega R.N. Locked/Released at 12/14/2016 18:14 by Moncho Vega R.N.
--- NOTE | 2016-12-14 17:38 | ED CLINICAL REPORT ---
Clinical Report - Physicians/Mid Levels [facility] [address] [place] [address] 12/14/2016 12:58 Patient: ARMAND OAKLEY Time Seen: 14:56. Arrived- By private vehicle. Historian- patient. HISTORY OF PRESENT ILLNESS Chief Complaint: ABDOMINAL PAIN. At its maximum, severity described as severe. This started today at about 2 AM and is still present. It was abrupt in onset. It is described as "pain" and it is described as generalized in location. The patient has had nausea and mild diarrhea. He has had severe vomiting (22 AM). Similar symptoms previously: Many times. Recent medical care: The patient was seen recently by a health care provider. ( PCP Check up within the last several days). REVIEW OF SYSTEMS No constipation, black stools, difficulty with urination, pain with urination or urinary frequency. No bloody stools, fever, blurred vision, chest pain or difficulty breathing. No cough, joint pain or skin rash. Last bowel movement: today. The patient has had a headache. He has had a sore throat (from vomiting). PAST HISTORY PAST HISTORY PCP: Jaron Rodríguez (Oncologist) PAST HISTORY Anxiety Reaction. Crohn's Disease. 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 Prostatitis Back Pain. SOCIAL HISTORY Former smoker. ADDITIONAL NOTES The nursing notes have been reviewed. PHYSICAL EXAM Vital Signs: 12/14/2016 17:10 BP: 137/78. HR: 98. RR: 16. O2 saturation: 98%. Temp: 99.2 F. Pain level now: 810. 12/14/2016 14:03 BP: 146/84. HR: 75. RR: 16. O2 saturation: 97%. Temp: 99.5 F. Pain level now: 06/17. Appearance: Alert. Patient in moderate distress. Eyes: No scleral icterus or pale conjunctivae. ENT: Pharynx normal. Neck: Normal inspection. Respiratory: No respiratory distress. Breath sounds normal. Abdomen: Moderate tenderness diffusely. Abnormal bowel sounds: diminished. No rebound tenderness or guarding. Back: Normal inspection. : Normal genitalia. Testes descended. Skin: Skin warm. Normal skin color. Extremities: Extremities exhibit normal ROM. No lower extremity edema. LABS, X-RAYS, AND EKG Laboratory Tests: Urinalysis: (AMANDA: 12/14/2016 15:40) ( [facility] 12/14/2016 16:10) Final results Test Result Flag Units (Reference) URINE COLOR STRAW URINE APPEARANCE CLEAR URINE GLUCOSE NEGATIVE (NEGATIVE) URINE BILIRUBIN NEGATIVE (NEGATIVE) URINE KETONE 1+ (NEGATIVE) URINE SPECIFIC GRAVITY 1.015 (1.010-1.030) URINE PH 7.0 (5.0-8.0) URINE PROTEIN NEGATIVE (NEGATIVE) URINE UROBILINOGEN 0.2 EU/dL (0.2-1.0) URINE NITRITE NEGATIVE (NEGATIVE) URINE BLOOD NEGATIVE (NEGATIVE) URINE LEUKOCYTE ESTERASE NEGATIVE (NEGATIVE) URINE RBC NONE SEEN rbc/hpf (0-1) URINE WBC NONE SEEN wbc/hpf (0-1) URINE EPITHELIAL CELLS RARE EPI/hpf (0-5) URINE BACTERIA NONE SEEN (NONE SEEN) CBC w Diff: (AMANDA: 12/14/2016 13:40) ( [facility] 12/14/2016 15:10) Final results Test Result Flag Units (Reference) WHITE BLOOD COUNT 14.8 H K/uL (4.5-11.5) RED BLOOD COUNT 4.97 M/uL (4.50-5.90) HEMOGLOBIN 14.4 gm/dL (13.5-17.5) HEMATOCRIT 43.7 % (41.0-53.0) MEAN CELL VOLUME 88 fL (80-100) MEAN CORPUSCULAR HGB 29 pg (26-34) MEAN CORPUSCULAR HGB CONC 33 g/dL (31-37) RED CELL DISTRIBUTION WIDTH 14.5 % (11.6-14.8) PLATELET COUNT 314 K/uL (150-400) NEUTROPHIL % 87.5 H % (50-75) LYMPH % 7.3 L % (25-40) MONO % 5.0 % (3-14) EOSINOPHIL % 0.1 % (0-4) BASOPHIL % 0.1 % (0-2) BMP: (AMANDA: 12/14/2016 13:40) ( MsgRcvd 12/14/2016 15:24) Final results Test Result Flag Units (Reference) GLUCOSE 122 H mg/dL (70-110) BUN 8 mg/dL (7-18) CREATININE 0.9 mg/dL (0.6-1.3) Estimated GFR >60 mL/min Estimated GFR- >60 mL/min Note: Persistent reduction over 3 months in eGFR<60 mL/min/1.73 m2 defines CKD. Patients with eGFR values>=60 mL/min/1.73 m2 may also have CKD if evidence ofpersistent proteinuria. Additional information may be foundat www.kidney.org. SODIUM 136 mmol/L (136-145) POTASSIUM 3.6 mmol/L (3.5-5.1) CHLORIDE 102 mmol/L (98-107) CARBON DIOXIDE 24 mmol/L (21-32) CALCIUM 10.0 mg/dL (8.5-10.1) LIPASE 127 U/L (73-393) AMYLASE 35 U/L (25-115) . PROGRESS AND PROCEDURES Course of Care: 16:55 12/14/16. Second recheck. Abdomen still somewhat tender without peritoneal signs. Appears to rest comfortably following Haldol, Benadryl and lorazepam. 2-3 Liters of NS given. Disposition: Discharged. CLINICAL IMPRESSION Abdominal pain. Vomiting with volume depletion. INSTRUCTIONS (YOUR DRS NEED TO BE IN CHARGE OF YOUR DILAUDID AND LORAZEPAM RX IF YOU ARE STILL VOMITING IN 12 HOURS PLEASE RETURN TO ED BECAUSE YOU MAY NEED MORE PAIN MEDICATION.). Understanding of the discharge instructions verbalized by patient. (Electronically signed by Kevyn Castillo MD 12/16/2016 13:39)
--- NOTE | 2016-12-14 17:38 | ED ORDER SUMMARY ---
..... Patient: ARMAND OAKLEY OrderSheet [facility] VisitID: [id number] [address] [place] [address] 36y, M Registration Date/Time: 12/14/2016 ORDER SHEET Weight: 64.8 kg (stated) Allergies: Acetaminophen, NSAIDs, Sulfa Antibiotics GENERAL ORDERS: CBC w Diff Urgent (13:47 12/14/2016 EHassan R.N. per protocol) (14:14 JRomanelli R.N.) CMP Urgent (13:47 12/14/2016 EHassan R.N. per protocol) (14:14 JRomanelli R.N.) UA-Culture if indicated Urgent (13:47 12/14/2016 EHassan R.N. per protocol) (Ack 14:50 TBergley) (15:53 JRomanelli R.N.) Lipase Urgent (13:47 12/14/2016 EHassan R.N. per protocol) (14:14 JRomanelli R.N.) Amylase Urgent (13:47 12/14/2016 EHassan R.N. per protocol) (14:14 JRomanelli R.N.) MEDICATION ORDERS: IV FLUIDS: IV NS : initial bolus none -, then 1000 mL/hr for X1 (NOW) (13:45 12/14/2016 EHassan R.N. per protocol) (14:16 JRomanelli R.N.) IV Saline Lock (13:47 12/14/2016 EHassan R.N. per protocol) (14:16 JRomanelli R.N.) Zofran IV 4 mg (NOW) (14:51 12/14/2016 JRomanelli R.N. verbal order read back to Abril OCONNOR) (14:52 JRomanelli R.N.) Benadryl IV 50 mg (NOW) (15:01 12/14/2016 Abril OCONNOR) (15:37 JRomanelli R.N.) Haldol IV 4 mg (NOW) (15:01 12/14/2016 Abril OCONNOR) (15:37 JRomanelli R.N.) Haldol IV 3 mg (NOW) (16:22 12/14/2016 Abril OCONNOR) (17:05 Colette Og) LORazepam IV 0.5 mg (NOW) (16:22 12/14/2016 Abril OCONNOR) (16:46 Colette Og) ORDER SHEET NOTES: [Electronically signed by Moncho Vega R.N. (18:14 12/14/2016)] [Electronically signed by Kevyn Castillo MD (13:39 12/16/2016)] [Electronically locked/signed by Moncho Vega R.N. (18:14 12/14/2016)]
--- NOTE | 2016-12-14 17:38 | ED ORDER SUMMARY ---
..... Patient: ARMAND OAKLEY OrderSheet [facility] VisitID: [id number] [address] [place] [address] 36y, M Registration Date/Time: 12/14/2016 ORDER SHEET Weight: 64.8 kg (stated) Allergies: Acetaminophen, NSAIDs, Sulfa Antibiotics GENERAL ORDERS: CBC w Diff Urgent (13:47 12/14/2016 EHassan R.N. per protocol) (14:14 JRomanelli R.N.) CMP Urgent (13:47 12/14/2016 EHassan R.N. per protocol) (14:14 JRomanelli R.N.) UA-Culture if indicated Urgent (13:47 12/14/2016 EHassan R.N. per protocol) (Ack 14:50 TBergley) (15:53 JRomanelli R.N.) Lipase Urgent (13:47 12/14/2016 EHassan R.N. per protocol) (14:14 JRomanelli R.N.) Amylase Urgent (13:47 12/14/2016 EHassan R.N. per protocol) (14:14 JRomanelli R.N.) MEDICATION ORDERS: IV FLUIDS: IV NS : initial bolus none -, then 1000 mL/hr for X1 (NOW) (13:45 12/14/2016 EHassan R.N. per protocol) (14:16 JRomanelli R.N.) IV Saline Lock (13:47 12/14/2016 EHassan R.N. per protocol) (14:16 JRomanelli R.N.) Zofran IV 4 mg (NOW) (14:51 12/14/2016 JRomanelli R.N. verbal order read back to Abril OCONNOR) (14:52 JRomanelli R.N.) Benadryl IV 50 mg (NOW) (15:01 12/14/2016 Abril OCONNOR) (15:37 JRomanelli R.N.) Haldol IV 4 mg (NOW) (15:01 12/14/2016 Abril OCONNOR) (15:37 JRomanelli R.N.) Haldol IV 3 mg (NOW) (16:22 12/14/2016 Abril OCONNOR) (17:05 Colette Og) LORazepam IV 0.5 mg (NOW) (16:22 12/14/2016 Abril OCONNOR) (16:46 Colette Og) ORDER SHEET NOTES: [Electronically signed by Moncho Vega R.N. (18:14 12/14/2016)] [Electronically signed by Kevyn Castillo MD (13:39 12/16/2016)] [Electronically locked/signed by Moncho Vega R.N. (18:14 12/14/2016)]
--- NOTE | 2016-12-14 17:38 | ED CLINICAL REPORT ---
Clinical Report - Physicians/Mid Levels [facility] [address] [place] [address] 12/14/2016 12:58 Patient: ARMAND OAKLEY Time Seen: 14:56. Arrived- By private vehicle. Historian- patient. HISTORY OF PRESENT ILLNESS Chief Complaint: ABDOMINAL PAIN. At its maximum, severity described as severe. This started today at about 2 AM and is still present. It was abrupt in onset. It is described as "pain" and it is described as generalized in location. The patient has had nausea and mild diarrhea. He has had severe vomiting (22 AM). Similar symptoms previously: Many times. Recent medical care: The patient was seen recently by a health care provider. ( PCP Check up within the last several days). REVIEW OF SYSTEMS No constipation, black stools, difficulty with urination, pain with urination or urinary frequency. No bloody stools, fever, blurred vision, chest pain or difficulty breathing. No cough, joint pain or skin rash. Last bowel movement: today. The patient has had a headache. He has had a sore throat (from vomiting). PAST HISTORY PAST HISTORY PCP: Jaron Rodríguez (Oncologist) PAST HISTORY Anxiety Reaction. Crohn's Disease. 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 Prostatitis Back Pain. SOCIAL HISTORY Former smoker. ADDITIONAL NOTES The nursing notes have been reviewed. PHYSICAL EXAM Vital Signs: 12/14/2016 17:10 BP: 137/78. HR: 98. RR: 16. O2 saturation: 98%. Temp: 99.2 F. Pain level now: 810. 12/14/2016 14:03 BP: 146/84. HR: 75. RR: 16. O2 saturation: 97%. Temp: 99.5 F. Pain level now: 06/17. Appearance: Alert. Patient in moderate distress. Eyes: No scleral icterus or pale conjunctivae. ENT: Pharynx normal. Neck: Normal inspection. Respiratory: No respiratory distress. Breath sounds normal. Abdomen: Moderate tenderness diffusely. Abnormal bowel sounds: diminished. No rebound tenderness or guarding. Back: Normal inspection. : Normal genitalia. Testes descended. Skin: Skin warm. Normal skin color. Extremities: Extremities exhibit normal ROM. No lower extremity edema. LABS, X-RAYS, AND EKG Laboratory Tests: Urinalysis: (AMANDA: 12/14/2016 15:40) ( [facility] 12/14/2016 16:10) Final results Test Result Flag Units (Reference) URINE COLOR STRAW URINE APPEARANCE CLEAR URINE GLUCOSE NEGATIVE (NEGATIVE) URINE BILIRUBIN NEGATIVE (NEGATIVE) URINE KETONE 1+ (NEGATIVE) URINE SPECIFIC GRAVITY 1.015 (1.010-1.030) URINE PH 7.0 (5.0-8.0) URINE PROTEIN NEGATIVE (NEGATIVE) URINE UROBILINOGEN 0.2 EU/dL (0.2-1.0) URINE NITRITE NEGATIVE (NEGATIVE) URINE BLOOD NEGATIVE (NEGATIVE) URINE LEUKOCYTE ESTERASE NEGATIVE (NEGATIVE) URINE RBC NONE SEEN rbc/hpf (0-1) URINE WBC NONE SEEN wbc/hpf (0-1) URINE EPITHELIAL CELLS RARE EPI/hpf (0-5) URINE BACTERIA NONE SEEN (NONE SEEN) CBC w Diff: (AMANDA: 12/14/2016 13:40) ( [facility] 12/14/2016 15:10) Final results Test Result Flag Units (Reference) WHITE BLOOD COUNT 14.8 H K/uL (4.5-11.5) RED BLOOD COUNT 4.97 M/uL (4.50-5.90) HEMOGLOBIN 14.4 gm/dL (13.5-17.5) HEMATOCRIT 43.7 % (41.0-53.0) MEAN CELL VOLUME 88 fL (80-100) MEAN CORPUSCULAR HGB 29 pg (26-34) MEAN CORPUSCULAR HGB CONC 33 g/dL (31-37) RED CELL DISTRIBUTION WIDTH 14.5 % (11.6-14.8) PLATELET COUNT 314 K/uL (150-400) NEUTROPHIL % 87.5 H % (50-75) LYMPH % 7.3 L % (25-40) MONO % 5.0 % (3-14) EOSINOPHIL % 0.1 % (0-4) BASOPHIL % 0.1 % (0-2) BMP: (AMANDA: 12/14/2016 13:40) ( MsgRcvd 12/14/2016 15:24) Final results Test Result Flag Units (Reference) GLUCOSE 122 H mg/dL (70-110) BUN 8 mg/dL (7-18) CREATININE 0.9 mg/dL (0.6-1.3) Estimated GFR >60 mL/min Estimated GFR- >60 mL/min Note: Persistent reduction over 3 months in eGFR<60 mL/min/1.73 m2 defines CKD. Patients with eGFR values>=60 mL/min/1.73 m2 may also have CKD if evidence ofpersistent proteinuria. Additional information may be foundat www.kidney.org. SODIUM 136 mmol/L (136-145) POTASSIUM 3.6 mmol/L (3.5-5.1) CHLORIDE 102 mmol/L (98-107) CARBON DIOXIDE 24 mmol/L (21-32) CALCIUM 10.0 mg/dL (8.5-10.1) LIPASE 127 U/L (73-393) AMYLASE 35 U/L (25-115) . PROGRESS AND PROCEDURES Course of Care: 16:55 12/14/16. Second recheck. Abdomen still somewhat tender without peritoneal signs. Appears to rest comfortably following Haldol, Benadryl and lorazepam. 2-3 Liters of NS given. Disposition: Discharged. CLINICAL IMPRESSION Abdominal pain. Vomiting with volume depletion. INSTRUCTIONS (YOUR DRS NEED TO BE IN CHARGE OF YOUR DILAUDID AND LORAZEPAM RX IF YOU ARE STILL VOMITING IN 12 HOURS PLEASE RETURN TO ED BECAUSE YOU MAY NEED MORE PAIN MEDICATION.). Understanding of the discharge instructions verbalized by patient. (Electronically signed by Kevyn Castillo MD 12/16/2016 13:39)
--- NOTE | 2016-12-16 13:40 | ED DISCHARGE INSTRUCTIONS ---
Patient: ARMAND OAKLEY General Instructions [facility] VisitID: [id number] [place] [address] 36y, M Registration Date/Time: 12/14/2016 Abdominal pain. Vomiting with volume depletion. INSTRUCTIONS (YOUR DRS NEED TO BE IN CHARGE OF YOUR DILAUDID AND LORAZEPAM RX IF YOU ARE STILL VOMITING IN 12 HOURS PLEASE RETURN TO ED BECAUSE YOU MAY NEED MORE PAIN MEDICATION.). Understanding of the discharge instructions verbalized by patient. ADDITIONAL INFORMATION Vomiting [6Yr-Adult] Vomiting is a common symptom that may be due to different causes. These include gastroenteritis ("stomach flu"), food poisoning and gastritis. There are other more serious causes of vomiting which may be hard to diagnose early in the illness. Therefore, it is important to watch for the warning signs listed below. The main danger from repeated vomiting is dehydration. This is due to excess loss of water and minerals from the body. When this occurs, body fluids must be replaced. Home Care: If symptoms are severe, rest at home for the next 24 hours. You may use acetaminophen (Tylenol) or ibuprofen (Motrin, Advil) to control fever, unless another medicine was prescribed. [NOTE : If you have chronic liver or kidney disease or ever had a stomach ulcer or GI bleeding, talk with your doctor before using these medicines.] (Aspirin should never be used in anyone under 18 years of age who is ill with a fever. It may cause severe liver damage.) Avoid tobacco and alcohol use, which may worsen your symptoms. If medicines for vomiting were prescribed, take as directed. Once vomiting stops, then follow these guidelines: During The First 12-24 Hours follow the diet below: FRUIT JUICES: Apple, grape juice, clear fruit drinks, and electrolyte replacement drinks. BEVERAGES: Soft drinks without caffeine; mineral water (plain or flavored), decaffeinated tea and coffee. SOUPS: Clear broth, consomm and bouillon DESSERTS: Plain gelatin, popsicles and fruit juice bars. As you feel better, you may add 6-8 ounces of yogurt per day. During The Next 24 Hours you may add the following to the above: Hot cereal, plain toast, bread, rolls, crackers Plain noodles, rice, mashed potatoes, chicken noodle or rice soup Unsweetened canned fruit (avoid pineapple), bananas Limit caffeine and chocolate. No spices or seasonings except salt. During The Next 24 Hours Gradually resume a normal diet, as you feel better and your symptoms lessen. Follow Up with your doctor as advised if you are not improving over the next 2-3 days. Get Prompt Medical Attention if any of the following occur: Constant right-sided lower abdominal pain or increasing general abdominal pain Continued vomiting (unable to keep liquids down) for 24 hours Frequent diarrhea (more than 5 times a day); blood (red or black color) or mucus in diarrhea Reduced urine output or extreme thirst Weakness, dizziness or fainting Unusually drowsy or confused Fever of 100.4F (38C) oral or higher, not better with fever medication Yellow color of the eyes or skin You have been given the following additional information: Vomiting (6Y-Adult) (Electronically signed by Kevyn Castillo MD 12/16/2016 13:39)
--- NOTE | 2016-12-16 13:41 | ED MED RECONCILIATION SUMMARY ---
Patient: ARMAND OAKLEY Medication Reconciliation Report [facility] VisitID: [id number] [address] [place] [address] 36y, M Registration Date/Time: 12/14/2016 Weight: 64.8 kg Height/Length: 68 in. BMI: 21.7 ALLERGIES: Acetaminophen, NSAIDs, Sulfa Antibiotics The patient's Home Medications are listed below: THE FOLLOWING MEDICATIONS NEED TO BE RECONCILED: Dilaudid Oral (8 mg) 1 tablet, 5 x daily LORazepam Oral 1 mg, 3x a day Promethazine HCl Oral 25 mg suppos, daily Reglan Oral 10 mg, 4x a day Zofran ODT Oral (4 mg) 1 tablet, 6 x daily The source(s) of the original Home Medication information: Not obtained. The following Medications were given to the patient in the Emergency Department: IV NS IV Fluids bolus 0, then 1000 mL/hr, administered: 12/14/2016 1:51:00 PM Zofran [IVP] IVP 4 mg, administered: 12/14/2016 1:52:00 PM Benadryl [IVP] IVP 50 mg, administered: 12/14/2016 3:28:00 PM HALDOL [IVP] IVP 4 mg, administered: 12/14/2016 3:32:00 PM Lorazepam [IVP] IVP 0.5 mg, administered: 12/14/2016 4:36:00 PM HALDOL [IVP] IVP 3 mg, administered: 12/14/2016 5:05:00 PM The following Medications were prescribed to the patient: None.
--- NOTE | 2016-12-16 13:41 | ED MAR SUMMARY ---
..... Medication Administration Record [facility] [address] [place] [address] Patient: ARMAND OAKLEY Visit ID: [id number] 36y, M Weight: 64.8 kg Height/Length: 68 in BMI: 21.7 ALLERGIES: Acetaminophen, NSAIDs, Sulfa Antibiotics Start 13:51 12/14/2016 Moncho Vega R.N., Stop 17:10 12/14/2016 Moncho Vega R.N. Medication Administered: IV NS (SALINE), Dose: IV Fluids over 60 minute(s), Rate: 1000 mL/hr, Dispensed: 1000 mL bag, Site: #1 right hand. Medication Ordered: IV NS : initial bolus none -, then 1000 mL/hr for X1 (NOW). Given 13:52 12/14/2016 Moncho Vega R.N. Medication Administered: ZOFRAN [IVP] (ONDANSETRON HCL), Dose: 4 mg IVP over 2 minute(s), Site: #1 right hand. Medication Ordered: Zofran IV 4 mg (NOW). Given 15:28 12/14/2016 Moncho Vega R.N. Medication Administered: BENADRYL [IVP] (DIPHENHYDRAMINE HCL), Dose: 50 mg IVP over 2 minute(s), Site: #1 right hand. Medication Ordered: Benadryl IV 50 mg (NOW). Given 15:32 12/14/2016 Moncho Vega R.N. Medication Administered: HALDOL [IVP] (HALOPERIDOL LACTATE), Dose: 4 mg IVP over 2 minute(s), Site: #1 right hand. Medication Ordered: Haldol IV 4 mg (NOW). Given 16:36 12/14/2016 Moncho Vega R.N. Medication Administered: LORAZEPAM [IVP] (LORAZEPAM), Dose: 0.5 mg IVP over 2 minute(s), Site: #1 right hand. Medication Ordered: LORazepam IV 0.5 mg (NOW). Given 17:05 12/14/2016 Moncho Vega R.N. Medication Administered: HALDOL [IVP] (HALOPERIDOL LACTATE), Dose: 3 mg IVP over 2 minute(s), Site: #1 right hand. Medication Ordered: Haldol IV 3 mg (NOW).
--- NOTE | 2016-12-16 13:41 | ED MED RECONCILIATION SUMMARY ---
Patient: ARMAND OAKLEY Medication Reconciliation Report [facility] VisitID: [id number] [address] [place] [address] 36y, M Registration Date/Time: 12/14/2016 Weight: 64.8 kg Height/Length: 68 in. BMI: 21.7 ALLERGIES: Acetaminophen, NSAIDs, Sulfa Antibiotics The patient's Home Medications are listed below: THE FOLLOWING MEDICATIONS NEED TO BE RECONCILED: Dilaudid Oral (8 mg) 1 tablet, 5 x daily LORazepam Oral 1 mg, 3x a day Promethazine HCl Oral 25 mg suppos, daily Reglan Oral 10 mg, 4x a day Zofran ODT Oral (4 mg) 1 tablet, 6 x daily The source(s) of the original Home Medication information: Not obtained. The following Medications were given to the patient in the Emergency Department: IV NS IV Fluids bolus 0, then 1000 mL/hr, administered: 12/14/2016 1:51:00 PM Zofran [IVP] IVP 4 mg, administered: 12/14/2016 1:52:00 PM Benadryl [IVP] IVP 50 mg, administered: 12/14/2016 3:28:00 PM HALDOL [IVP] IVP 4 mg, administered: 12/14/2016 3:32:00 PM Lorazepam [IVP] IVP 0.5 mg, administered: 12/14/2016 4:36:00 PM HALDOL [IVP] IVP 3 mg, administered: 12/14/2016 5:05:00 PM The following Medications were prescribed to the patient: None.
--- NOTE | 2016-12-16 13:41 | ED MAR SUMMARY ---
..... Medication Administration Record [facility] [address] [place] [address] Patient: ARMAND OAKLEY Visit ID: [id number] 36y, M Weight: 64.8 kg Height/Length: 68 in BMI: 21.7 ALLERGIES: Acetaminophen, NSAIDs, Sulfa Antibiotics Start 13:51 12/14/2016 Moncho Vega R.N., Stop 17:10 12/14/2016 Moncho Vega R.N. Medication Administered: IV NS (SALINE), Dose: IV Fluids over 60 minute(s), Rate: 1000 mL/hr, Dispensed: 1000 mL bag, Site: #1 right hand. Medication Ordered: IV NS : initial bolus none -, then 1000 mL/hr for X1 (NOW). Given 13:52 12/14/2016 Moncho Vega R.N. Medication Administered: ZOFRAN [IVP] (ONDANSETRON HCL), Dose: 4 mg IVP over 2 minute(s), Site: #1 right hand. Medication Ordered: Zofran IV 4 mg (NOW). Given 15:28 12/14/2016 Moncho Vega R.N. Medication Administered: BENADRYL [IVP] (DIPHENHYDRAMINE HCL), Dose: 50 mg IVP over 2 minute(s), Site: #1 right hand. Medication Ordered: Benadryl IV 50 mg (NOW). Given 15:32 12/14/2016 Moncho Vega R.N. Medication Administered: HALDOL [IVP] (HALOPERIDOL LACTATE), Dose: 4 mg IVP over 2 minute(s), Site: #1 right hand. Medication Ordered: Haldol IV 4 mg (NOW). Given 16:36 12/14/2016 Moncho Vega R.N. Medication Administered: LORAZEPAM [IVP] (LORAZEPAM), Dose: 0.5 mg IVP over 2 minute(s), Site: #1 right hand. Medication Ordered: LORazepam IV 0.5 mg (NOW). Given 17:05 12/14/2016 Moncho Vega R.N. Medication Administered: HALDOL [IVP] (HALOPERIDOL LACTATE), Dose: 3 mg IVP over 2 minute(s), Site: #1 right hand. Medication Ordered: Haldol IV 3 mg (NOW).
== END 2016-12-14 17:15 | disposition home or self-care (01) ==
LOC: ED SRH 12:58
DX: R10.84 Generalized abdominal pain (principal); R11.10 Vomiting, unspecified; E86.9 Volume depletion, unspecified; I10 Essential (primary) hypertension; K50.90 Crohn's disease, unspecified, without complications; Z87.891 Personal history of nicotine dependence
CPT/HCPCS: 90004; 90047; 90074; 92235; 92530; 95059

== ENCOUNTER 2017-04-17 09:43 | Emergency (ER) | payer OTHER ==
[~2017-04-17 09:43] MED LIST: DILAUDID2 MG PO; GABAPENTIN300 MG PO; PROTONIX40 MG PO; REGLAN10 MG PO
--- NOTE | 2017-04-17 11:13 | ED ORDER SUMMARY ---
..... Patient: ARMAND OAKLEY OrderSheet [facility] VisitID: [id number] [place] [address] 36y, M Registration Date/Time: 04/17/2017 ORDER SHEET Weight: 63.5 kg (stated) Allergies: Acetaminophen, NSAIDs, Sulfa Antibiotics GENERAL ORDERS: CBC w Diff Urgent (09:04/17/2017 Kalee Voss) (Ack 9:57 PWeiler ER Tech1) (10:01 LWhalen R.N.) CMP Urgent (:04/17/2017 Kalee Voss) (Ack 9:57 PWeiler ER Tech1) (10:01 LWhalen R.N.) UA-Culture if indicated Urgent (:04/17/2017 Kalee Voss) (Ack 9:57 PWeiler ER Tech1) (10:59 LWhalen R.N.) Amylase Urgent (:04/17/2017 Kalee Voss) (Ack 9:57 PWeiler ER Tech1) (10:01 LWhalen R.N.) Lipase Urgent (09:04/17/2017 Kalee Voss) (Ack 9:57 PWeiler ER Tech1) (10:01 LWhalen R.N.) Urine Drug Screen Urgent (:04/17/2017 Kalee Voss) (Ack 9:57 PWeiler ER Tech1) (10:59 LWhalen R.N.) Ethyl Alcohol Urgent (10:20 04/17/2017 Kalee Voss) (Ack 10:22 PWeiler ER Tech1) (10:34 PWeiler ER Tech1) MEDICATION ORDERS: IV FLUIDS: IV NS : initial bolus none -, then 1000 mL/hr for X1 (NOW) (09:04/17/2017 Kalee Voss) (10:01 LWhalen R.N.) Zofran IV 4 mg (NOW) (:04/17/2017 Kalee Voss) (10:01 LWhalen R.N.) Famotidine IV 20 mg/50mL (NOW) (:04/17/2017 Kalee Voss) (10:01 LWcarmelita R.N.) Benadryl IV 25 mg (NOW) (10:08 04/17/2017 Charli Og verbal order read back to Kalee Voss) (10:09 LWcarmelita HodgeN.) Morphine IV 4 mg (HIGH ALERT MEDICATION, NOW) (10:26 04/17/2017 Kalee Voss) (10:59 LWcarmelita Og) Zofran IV 4 mg (NOW) (11:15 04/17/2017 Kalee Voss) (11:39 LWcarmelita Perez.N.) ORDER SHEET NOTES: [Electronically signed by Angelito Camarena Dr. (11:40 04/17/2017)] [Electronically signed by Celestine Burnette R.N. (12:12 04/17/2017)] [Electronically locked/signed by Celestine Burnette R.N. (12:12 04/17/2017)]
--- NOTE | 2017-04-17 11:13 | ED CLINICAL REPORT ---
Clinical Report - Physicians/Mid Levels [facility] [address] [place] [place] [address] 04/17/2017 9:44 Patient: ARMAND OAKLEY Time Seen: 09:50; initial patient contact. Arrived- By private vehicle. Historian- patient. HISTORY OF PRESENT ILLNESS Chief Complaint: VOMITING. This started yesterday and is still present. It was gradual in onset and has been waxing/waning. The patient has had nausea, vomiting, diarrhea, bloody stools and abdominal pain. No black stools or known contact with a sick individual. Has not recently been on antibiotics. The illness is described as moderate. Similar symptoms previously: Many times. Recent medical care: The patient was seen recently and hospitalized. ( For Hematemesis. D/C yesterday. No bleeding noted on EGD.). REVIEW OF SYSTEMS No fever or dark urine. All systems otherwise negative, except as recorded above. PAST HISTORY Vomiting. Abdominal Pain. Intestinal CA with METS. Diarrhea. Anxiety Reaction. Leukocytosis. Hypokalemia. Abnormal EKG. Abnormal Test. Palpitations. B12 deficiency. Crohn's Disease. Pancreatic Cancer. Hypertension. Back Pain. Narcotic Withdrawal Abdominal Pain Vomiting SURGERIES: Bowel Resection. Bowel Surgery. Laparotomy. SOCIAL HISTORY Never smoker. No alcohol use or drug use. ADDITIONAL NOTES The nursing notes have been reviewed. PHYSICAL EXAM Vital Signs: 04/17/2017 09:50 BP: 129/93. HR: 96. RR: 18. O2 saturation: 96%. Temp: 99.1 F. Have been reviewed. Hypertensive. Heart rate normal. Respiratory rate normal. Temperature normal. Oxygen saturation normal. Appearance: Alert. Oriented X3. Patient in mild distress. Eyes: Eyes normal inspection. No pale conjunctivae. ENT: Dry mucous membranes present. CVS: Normal heart rate and rhythm. Heart sounds normal. Respiratory: No respiratory distress. Breath sounds normal. Abdomen: Soft. Moderate tenderness diffusely with guarding present. No rebound tenderness. Bowel sounds normal. No organomegaly. No mass. Rectal: Rectal exam normal and nontender. Stool heme negative; hemoccult principal quality engineer check passed. (POC test reference range: negative). (Female HUNTER Virgen present for rectal exam.). Skin: Skin warm and dry. Normal skin color. No rash. Extremities: No lower extremity edema. Neuro: Oriented X 3. LABS, X-RAYS, AND EKG Laboratory Tests: CBC w Diff: (AMANDA: 04/17/2017 10:00) ( [facility] [place] 04/17/2017 10:08) Final results Test Result Flag Units (Reference) WHITE BLOOD COUNT 12.1 H K/uL (4.5-11.5) RED BLOOD COUNT 4.71 M/uL (4.50-5.90) HEMOGLOBIN 13.9 gm/dL (13.5-17.5) HEMATOCRIT 41.9 % (41.0-53.0) MEAN CELL VOLUME 89 fL (80-100) MEAN CORPUSCULAR HGB 29 pg (26-34) MEAN CORPUSCULAR HGB CONC 33 g/dL (31-37) RED CELL DISTRIBUTION WIDTH 14.6 % (11.6-14.8) PLATELET COUNT 303 K/uL (150-400) NEUTROPHIL % 79.3 H % (50-75) LYMPH % 13.8 L % (25-40) MONO % 6.1 % (3-14) EOSINOPHIL % 0.5 % (0-4) BASOPHIL % 0.3 % (0-2) Ethyl Alcohol: (AMANDA: 04/17/2017 10:00) ( [facility] [place] 04/17/2017 10:33) Final results Test Result Flag Units (Reference) ETHYL ALCOHOL < 3.0 L mg/dL (3-10) CMP: (AMANDA: 04/17/2017 10:00) ( [facility] [place] 10:20) Final results Test Result Flag Units (Reference) GLUCOSE 109 mg/dL (70-110) BUN 9 mg/dL (7-18) CREATININE 1.0 mg/dL (0.6-1.3) Estimated GFR >60 mL/min Estimated GFR- >60 mL/min Note: Persistent reduction over 3 months in eGFR<60 mL/min/1.73 m2 defines CKD. Patients with eGFR values>=60 mL/min/1.73 m2 may also have CKD if evidence ofpersistent proteinuria. Additional information may be foundat www.kidney.org. SODIUM 147 H mmol/L (136-145) POTASSIUM 3.8 mmol/L (3.5-5.1) CHLORIDE 103 mmol/L (98-107) CARBON DIOXIDE 26 mmol/L (21-32) CALCIUM 8.9 mg/dL (8.5-10.1) TOTAL PROTEIN 7.6 g/dL (6.4-8.2) ALBUMIN 4.0 g/dL (3.3-5.0) BILIRUBIN, TOTAL 0.6 mg/dL (0.0-1.0) ALKALINE PHOSPHATASE 70 U/L (46-116) AST (SGOT) 15 U/L (15-37) ALT (SGPT) 20 U/L (12-78) LIPASE 118 U/L (73-393) AMYLASE 32 U/L (25-115) . PROGRESS AND PROCEDURES Course of Care: 11:10 04/17/17. The patient's symptoms are now gone. Physical exam findings are improved. Benadryl 25 mg IVP given. Zofran 4 mg IVP given. Famotidine 20mg IVPB given. Heme neg stool and BUN/Cr ratio only 9. Disposition: Discharged home in good and improved condition. Condition: good. CLINICAL IMPRESSION Intractable vomiting with nausea. No dehydration or volume depletion. Not bilious. INSTRUCTIONS Your Current Medications: CONTINUE TAKING THE FOLLOWING MEDICATIONS: Reglan Oral : 10 mg 4x a day. Prescription Medications: Zofran (orally disintegrating tablets) 4 mg: take 1 orally every 6 hours as needed for nausea and vomiting. Dispense ten (10). One refill. Substitution is permissible. Follow-up: Follow up with your doctor in about two days. Call for an appointment. Screening today revealed the patient's blood pressure to be in the hypertensive range. The patient should follow up with a primary care provider for blood pressure management. (Electronically signed by Angelito Camarena Dr. 04/17/2017 11:40)
--- NOTE | 2017-04-17 11:13 | ED NURSING NOTES ---
Clinical Report - Nurses [facility] [address] [place] [address] 04/17/2017 9:44 Patient: ARMAND OAKLEY TRIAGE Triage time 09:50 Apr 17 2017. Acuity: LEVEL 3. Chief Complaint: ABDOMINAL PAIN and NAUSEA. EDINSON COMA SCORE: [place] Coma Scale: 15- eyes open spontaneously (4); best verbal response- oriented x 4 (5); best motor response- obeys commands (6). --09:57 Celestine Burnette R.N. 09:50 04/17/17. BP: 129/93. HR: 96. RR: 18. O2 saturation: 96%. Temp: 99.1 F. Pain level now 06/17. --09:57 Celestine Burnette R.N. Weight: 63.5 kg stated. Height/Length: 69 inches Per Patient. BMI: 20.7. --09:56 Celestine Burnette R.N. Medications Reglan Oral 10 mg, 4x a day. --09:54 Celestine Burnette R.N. Allergies Acetaminophen. Definite Severe (Can't digest this Rx) NSAIDs. Definite Moderate (Vsn'y digest this Rx) Sulfa Antibiotics. Definite Severe(nausea) --09:54 Celestine Burnette R.N. History Arrived by private vehicle. Historian: patient. Accompanied by family. ( Has been throwing up all night and woke up this am swollen face and throwing up and having diarrhea.). He has had fever, nausea, vomiting, diarrhea and abdominal pain. PAST MEDICAL HX: Immunizations: up-to-date. SOCIAL HX: Smoker- current status unknown (chews tobacco). No alcohol use or drug use. No recent travel. SELF HARM ASSESSMENT: A self harm assessment was performed. The patient answered "no" to the question "Have you recently felt down, depressed, or hopeless?" and "Do you have thoughts of harming or killing yourself?". FALL RISK ASSESSMENT: Fall risk assessment completed. No fall risk identified. NUTRITIONAL RISK ASSESSMENT: The nutritional risk assessment revealed no deficiencies. FUNCTIONAL ASSESSMENT: Functional assessment: no impairments noted. LEARNING NEEDS ASSESSMENT: The learning needs assessment revealed no barriers. ABUSE ASSESSMENT: Abuse assessment: (no) The patient was asked "Do you feel safe in your home?". SKIN INTEGRITY ASSESSMENT: Skin integrity risk assessment completed. No skin integrity risk identified. --09:57 Celestine Burnette R.N. PROBLEMS: Vomiting. Abdominal Pain. Intestinal CA with METS. Diarrhea. Anxiety Reaction. Leukocytosis. Hypokalemia. Abnormal EKG. Abnormal Test. Palpitations. B12 deficiency. Crohn's Disease. Pancreatic Cancer. Hypertension. Back Pain. Tetanus Status. --09:55 Celestine Burnette R.N. Narcotic Withdrawal [RuleOut]. Abdominal Pain [RuleOut]. Vomiting [RuleOut]. --09:55 Celestine Burnette R.N. ADDITIONAL SURGERIES: Bowel Resection. Bowel Surgery. Laparotomy. --09:55 Celestine Burnette R.N. Interventions ID band on patient. --09:57 Celestine Burnette R.N. PHYSICAL ASSESSMENT To room via wheelchair. GENERAL / NEURO / PSYCH: Alert. Oriented X 4. Appears in pain, anxious and in distress. HEENT: Mucous membranes are pink. RESPIRATORY: Respirations not labored. Breath sounds within normal limits. CVS: Normal sinus rhythm noted. Capillary refill less than 2 seconds. GI / : The patient has had nausea and diarrhea. Emesis noted. Normal genitalia. SKIN: Skin is warm and dry. --09:58 Celestine Burnette R.N. NURSING PROGRESS NOTES The initial plan of care for this patient includes an assessment with efforts to address patient positioning, appropriate ambient lighting and comfortable environmental temperature. radiation monitor, pulse oximeter and NIBP monitor placed on patient. Patient gowned. Head of bed elevated 60 degrees. Reassurance given. Call light placed in reach. Side rails up x 1. Bed placed in lowest position. Brakes of bed on. --09:58 Celestine Burnette R.N. 10:01 04/17/2017 Site #1 started via IV in the left antecubital space with an 20g angiocath, with aseptic technique and good blood return; one attempt. Blood drawn: rainbow set. Labeled in the presence of the patient and sent to the lab. Saline lock flushed with 10 mL saline. --10:01 Celestine Burnette R.N. 10:04/17/2017 Started bag #1 1000 mL IV Fluids IV NS (Saline); at 1000 mL/hr over 1 hour(s) via site #1 via IV pump. Allergies verified and confirmed 5 rights. IV patency established. IV site checked: no pain, redness, or swelling. IV flushed thoroughly pre- and post-medication administration. --10: Celestine Burnette R.N. 10:04/17/2017 Zofran (Ondansetron HCl) IVP 4 mg given over 2 minute(s) via site #1. Allergies verified and confirmed 5 rights. IV patency established. IV site checked: no pain, redness, or swelling. IV flushed thoroughly pre- and post-medication administration. --10: Celestine Burnette R.N. 10:04/17/2017 Famotidine IVP 20 mg given over 0.5 hour(s) via site #1. Allergies verified and confirmed 5 rights. IV patency established. IV site checked: no pain, redness, or swelling. IV flushed thoroughly pre- and post-medication administration. --10: Celestine Burnette R.N. 10:04/17/2017 Benadryl (DiphenhydrAMINE HCl) IVP 25 mg given over 2 minute(s) via site #1. Allergies verified, confirmed 5 rights and sedative warning given to the patient and patient's filling operator. IV patency established. IV site checked: no pain, redness, or swelling. IV flushed thoroughly pre- and post-medication administration. --10:09 Celestine Burnette R.N. 10:54 04/17/2017 Morphine IVP 4 mg given over 2 minute(s) via site #1. Allergies verified, confirmed 5 rights and sedative warning given to the patient. IV patency established. IV site checked: no pain, redness, or swelling. IV flushed thoroughly pre- and post-medication administration. --10:59 Celestine Burnette R.N. 11:29 04/17/2017 Zofran (Ondansetron HCl) IVP 4 mg given over 2 minute(s) via site #1. Allergies verified and confirmed 5 rights. IV patency established. IV site checked: no pain, redness, or swelling. IV flushed thoroughly pre- and post-medication administration. --11:39 Celestine Burnette R.N. 10:45 04/17/17. BP: 148/69. HR: 80. RR: 18. O2 saturation: 99%. 10:30 04/17/17. BP: 138/77. HR: 74. RR: 18. O2 saturation: 98%. 10:15 04/17/17. BP: 147/99. HR: 81. RR: 22. O2 saturation: 99%. 10:00 04/17/17. BP: 128/104. HR: 92. RR: 18. O2 saturation: 97%. --12:12 Celestine Burnette R.N. DISPOSITION / DISCHARGE 12:08 04/17/17. BP: 133/72. HR: 84. RR: 18. O2 saturation: 99%. Temp: 98.6 F. Pain level now 11/17. --12:09 Celestine Burnette R.N. Departure time: 1119Apr 17 2017. Condition at departure: improved. No learning barriers present. Discharge instructions provided and reviewed with the patient. Reviewed warnings. Reviewed medication(s). Treatments reviewed. Reviewed referrals. Patient verbalized understanding. Written instructions provided in Malay. The patient was discharged home and accompanied by filling operator. He left the Emergency Department ambulatory and via private vehicle. Tufter driving. --12:09 Celestine Burnette R.N. 11:00 04/17/2017 IV Fluids IV NS Discontinued: bag #1 infused upon discharge. Total amount infused: 1000 mL. IV patency established. IV site checked: no pain, redness, or swelling. IV flushed thoroughly. --12:10 Celestine Burnette R.N. 11:20 04/17/2017 Site #1 removed upon discharge. Catheter intact. Pressure dressing applied. --12:10 Celestine Burnette R.N. Locked/Released at 04/17/2017 12:12 by Celestine Burnette R.N.
--- NOTE | 2017-04-17 11:13 | ED CLINICAL REPORT ---
Clinical Report - Physicians/Mid Levels [facility] [address] [place] [address] 04/17/2017 9:44 Patient: ARMAND OAKLEY Time Seen: 09:50; initial patient contact. Arrived- By private vehicle. Historian- patient. HISTORY OF PRESENT ILLNESS Chief Complaint: VOMITING. This started yesterday and is still present. It was gradual in onset and has been waxing/waning. The patient has had nausea, vomiting, diarrhea, bloody stools and abdominal pain. No black stools or known contact with a sick individual. Has not recently been on antibiotics. The illness is described as moderate. Similar symptoms previously: Many times. Recent medical care: The patient was seen recently and hospitalized. ( For Hematemesis. D/C yesterday. No bleeding noted on EGD.). REVIEW OF SYSTEMS No fever or dark urine. All systems otherwise negative, except as recorded above. PAST HISTORY Vomiting. Abdominal Pain. Intestinal CA with METS. Diarrhea. Anxiety Reaction. Leukocytosis. Hypokalemia. Abnormal EKG. Abnormal Test. Palpitations. B12 deficiency. Crohn's Disease. Pancreatic Cancer. Hypertension. Back Pain. Narcotic Withdrawal Abdominal Pain Vomiting SURGERIES: Bowel Resection. Bowel Surgery. Laparotomy. SOCIAL HISTORY Never smoker. No alcohol use or drug use. ADDITIONAL NOTES The nursing notes have been reviewed. PHYSICAL EXAM Vital Signs: 04/17/2017 09:50 BP: 129/93. HR: 96. RR: 18. O2 saturation: 96%. Temp: 99.1 F. Have been reviewed. Hypertensive. Heart rate normal. Respiratory rate normal. Temperature normal. Oxygen saturation normal. Appearance: Alert. Oriented X3. Patient in mild distress. Eyes: Eyes normal inspection. No pale conjunctivae. ENT: Dry mucous membranes present. CVS: Normal heart rate and rhythm. Heart sounds normal. Respiratory: No respiratory distress. Breath sounds normal. Abdomen: Soft. Moderate tenderness diffusely with guarding present. No rebound tenderness. Bowel sounds normal. No organomegaly. No mass. Rectal: Rectal exam normal and nontender. Stool heme negative; hemoccult senior data quality analyst check passed. (POC test reference range: negative). (Female HUNTER Virgen present for rectal exam.). Skin: Skin warm and dry. Normal skin color. No rash. Extremities: No lower extremity edema. Neuro: Oriented X 3. LABS, X-RAYS, AND EKG Laboratory Tests: CBC w Diff: (AMANDA: 04/17/2017 10:00) ( [facility] [place] 10:08) Final results Test Result Flag Units (Reference) WHITE BLOOD COUNT 12.1 H K/uL (4.5-11.5) RED BLOOD COUNT 4.71 M/uL (4.50-5.90) HEMOGLOBIN 13.9 gm/dL (13.5-17.5) HEMATOCRIT 41.9 % (41.0-53.0) MEAN CELL VOLUME 89 fL (80-100) MEAN CORPUSCULAR HGB 29 pg (26-34) MEAN CORPUSCULAR HGB CONC 33 g/dL (31-37) RED CELL DISTRIBUTION WIDTH 14.6 % (11.6-14.8) PLATELET COUNT 303 K/uL (150-400) NEUTROPHIL % 79.3 H % (50-75) LYMPH % 13.8 L % (25-40) MONO % 6.1 % (3-14) EOSINOPHIL % 0.5 % (0-4) BASOPHIL % 0.3 % (0-2) Ethyl Alcohol: (AMANDA: 04/17/2017 10:00) ( [facility] [place] 04/17/[place] 10:33) Final results Test Result Flag Units (Reference) ETHYL ALCOHOL < 3.0 L mg/dL (3-10) CMP: (AMANDA: 04/17/2017 10:00) ( [facility] [place] 04/[facility] 10:20) Final results Test Result Flag Units (Reference) GLUCOSE 109 mg/dL (70-110) BUN 9 mg/dL (7-18) CREATININE 1.0 mg/dL (0.6-1.3) Estimated GFR >60 mL/min Estimated GFR- >60 mL/min Note: Persistent reduction over 3 months in eGFR<60 mL/min/1.73 m2 defines CKD. Patients with eGFR values>=60 mL/min/1.73 m2 may also have CKD if evidence ofpersistent proteinuria. Additional information may be foundat www.kidney.org. SODIUM 147 H mmol/L (136-145) POTASSIUM 3.8 mmol/L (3.5-5.1) CHLORIDE 103 mmol/L (98-107) CARBON DIOXIDE 26 mmol/L (21-32) CALCIUM 8.9 mg/dL (8.5-10.1) TOTAL PROTEIN 7.6 g/dL (6.4-8.2) ALBUMIN 4.0 g/dL (3.3-5.0) BILIRUBIN, TOTAL 0.6 mg/dL (0.0-1.0) ALKALINE PHOSPHATASE 70 U/L (46-116) AST (SGOT) 15 U/L (15-37) ALT (SGPT) 20 U/L (12-78) LIPASE 118 U/L (73-393) AMYLASE 32 U/L (25-115) . PROGRESS AND PROCEDURES Course of Care: 11:10 04/17/17. The patient's symptoms are now gone. Physical exam findings are improved. Benadryl 25 mg IVP given. Zofran 4 mg IVP given. Famotidine 20mg IVPB given. Heme neg stool and BUN/Cr ratio only 9. Disposition: Discharged home in good and improved condition. Condition: good. CLINICAL IMPRESSION Intractable vomiting with nausea. No dehydration or volume depletion. Not bilious. INSTRUCTIONS Your Current Medications: CONTINUE TAKING THE FOLLOWING MEDICATIONS: Reglan Oral : 10 mg 4x a day. Prescription Medications: Zofran (orally disintegrating tablets) 4 mg: take 1 orally every 6 hours as needed for nausea and vomiting. Dispense ten (10). One refill. Substitution is permissible. Follow-up: Follow up with your doctor in about two days. Call for an appointment. Screening today revealed the patient's blood pressure to be in the hypertensive range. The patient should follow up with a primary care provider for blood pressure management. (Electronically signed by Angelito Camarena Dr. 04/17/2017 11:40)
--- NOTE | 2017-04-17 11:13 | ED NURSING NOTES ---
Clinical Report - Nurses [facility] [address] [place] [address] 04/17/2017 9:44 Patient: ARMAND OAKLEY TRIAGE Triage time 09:50 Apr 17 2017. Acuity: LEVEL 3. Chief Complaint: ABDOMINAL PAIN and NAUSEA. EDINSON COMA SCORE: Louise Coma Scale: 15- eyes open spontaneously (4); best verbal response- oriented x 4 (5); best motor response- obeys commands (6). --09:57 Celestine Burnette R.N. 09:50 04/17/17. BP: 129/93. HR: 96. RR: 18. O2 saturation: 96%. Temp: 99.1 F. Pain level now 06/17. --09:57 Celestine Burnette R.N. Weight: 63.5 kg stated. Height/Length: 69 inches Per Patient. BMI: 20.7. --09:56 Celestine Burnette R.N. Medications Reglan Oral 10 mg, 4x a day. --09:54 Celestine Burnette R.N. Allergies Acetaminophen. Definite Severe (Can't digest this Rx) NSAIDs. Definite Moderate (Vsn'y digest this Rx) Sulfa Antibiotics. Definite Severe(nausea) --09:54 Celestine Burnette R.N. History Arrived by private vehicle. Historian: patient. Accompanied by family. ( Has been throwing up all night and woke up this am swollen face and throwing up and having diarrhea.). He has had fever, nausea, vomiting, diarrhea and abdominal pain. PAST MEDICAL HX: Immunizations: up-to-date. SOCIAL HX: Smoker- current status unknown (chews tobacco). No alcohol use or drug use. No recent travel. SELF HARM ASSESSMENT: A self harm assessment was performed. The patient answered "no" to the question "Have you recently felt down, depressed, or hopeless?" and "Do you have thoughts of harming or killing yourself?". FALL RISK ASSESSMENT: Fall risk assessment completed. No fall risk identified. NUTRITIONAL RISK ASSESSMENT: The nutritional risk assessment revealed no deficiencies. FUNCTIONAL ASSESSMENT: Functional assessment: no impairments noted. LEARNING NEEDS ASSESSMENT: The learning needs assessment revealed no barriers. ABUSE ASSESSMENT: Abuse assessment: (no) The patient was asked "Do you feel safe in your home?". SKIN INTEGRITY ASSESSMENT: Skin integrity risk assessment completed. No skin integrity risk identified. --09:57 Celestine Burnette R.N. PROBLEMS: Vomiting. Abdominal Pain. Intestinal CA with METS. Diarrhea. Anxiety Reaction. Leukocytosis. Hypokalemia. Abnormal EKG. Abnormal Test. Palpitations. B12 deficiency. Crohn's Disease. Pancreatic Cancer. Hypertension. Back Pain. Tetanus Status. --09:55 Celestine Burnette R.N. Narcotic Withdrawal [RuleOut]. Abdominal Pain [RuleOut]. Vomiting [RuleOut]. --09:55 Celestine Burnette R.N. ADDITIONAL SURGERIES: Bowel Resection. Bowel Surgery. Laparotomy. --09:55 Celestine Burnette R.N. Interventions ID band on patient. --09:57 Celestine Burnette R.N. PHYSICAL ASSESSMENT To room via wheelchair. GENERAL / NEURO / PSYCH: Alert. Oriented X 4. Appears in pain, anxious and in distress. HEENT: Mucous membranes are pink. RESPIRATORY: Respirations not labored. Breath sounds within normal limits. CVS: Normal sinus rhythm noted. Capillary refill less than 2 seconds. GI / : The patient has had nausea and diarrhea. Emesis noted. Normal genitalia. SKIN: Skin is warm and dry. --09:58 Celestine Burnette R.N. NURSING PROGRESS NOTES The initial plan of care for this patient includes an assessment with efforts to address patient positioning, appropriate ambient lighting and comfortable environmental temperature. monitor and storage bin tender, pulse oximeter and NIBP monitor placed on patient. Patient gowned. Head of bed elevated 60 degrees. Reassurance given. Call light placed in reach. Side rails up x 1. Bed placed in lowest position. Brakes of bed on. --09:58 Celestine Burnette R.N. 10:01 04/17/2017 Site #1 started via IV in the left antecubital space with an 20g angiocath, with aseptic technique and good blood return; one attempt. Blood drawn: rainbow set. Labeled in the presence of the patient and sent to the lab. Saline lock flushed with 10 mL saline. --10:01 Celestine Burnette R.N. 10:04/17/2017 Started bag #1 1000 mL IV Fluids IV NS (Saline); at 1000 mL/hr over 1 hour(s) via site #1 via IV pump. Allergies verified and confirmed 5 rights. IV patency established. IV site checked: no pain, redness, or swelling. IV flushed thoroughly pre- and post-medication administration. --10: Celestine Burnette R.N. 10:04/17/2017 Zofran (Ondansetron HCl) IVP 4 mg given over 2 minute(s) via site #1. Allergies verified and confirmed 5 rights. IV patency established. IV site checked: no pain, redness, or swelling. IV flushed thoroughly pre- and post-medication administration. --10: Celestine Burnette R.N. 10:04/17/2017 Famotidine IVP 20 mg given over 0.5 hour(s) via site #1. Allergies verified and confirmed 5 rights. IV patency established. IV site checked: no pain, redness, or swelling. IV flushed thoroughly pre- and post-medication administration. --10: Celestine Burnette R.N. 10:04/17/2017 Benadryl (DiphenhydrAMINE HCl) IVP 25 mg given over 2 minute(s) via site #1. Allergies verified, confirmed 5 rights and sedative warning given to the patient and patient's application analyst. IV patency established. IV site checked: no pain, redness, or swelling. IV flushed thoroughly pre- and post-medication administration. --10:09 Celestine Burnette R.N. 10:54 04/17/2017 Morphine IVP 4 mg given over 2 minute(s) via site #1. Allergies verified, confirmed 5 rights and sedative warning given to the patient. IV patency established. IV site checked: no pain, redness, or swelling. IV flushed thoroughly pre- and post-medication administration. --10:59 Celestine Burnette R.N. 11:29 04/17/2017 Zofran (Ondansetron HCl) IVP 4 mg given over 2 minute(s) via site #1. Allergies verified and confirmed 5 rights. IV patency established. IV site checked: no pain, redness, or swelling. IV flushed thoroughly pre- and post-medication administration. --11:39 Celestine Burnette R.N. 10:45 04/17/17. BP: 148/69. HR: 80. RR: 18. O2 saturation: 99%. 10:30 04/17/17. BP: 138/77. HR: 74. RR: 18. O2 saturation: 98%. 10:15 04/17/17. BP: 147/99. HR: 81. RR: 22. O2 saturation: 99%. 10:00 04/17/17. BP: 128/104. HR: 92. RR: 18. O2 saturation: 97%. --12:12 Celestine Burnette R.N. DISPOSITION / DISCHARGE 12:08 04/17/17. BP: 133/72. HR: 84. RR: 18. O2 saturation: 99%. Temp: 98.6 F. Pain level now 11/17. --12:09 Celestine Burnette R.N. Departure time: 1119Apr 17 2017. Condition at departure: improved. No learning barriers present. Discharge instructions provided and reviewed with the patient. Reviewed warnings. Reviewed medication(s). Treatments reviewed. Reviewed referrals. Patient verbalized understanding. Written instructions provided in Chinese. The patient was discharged home and accompanied by application analyst. He left the Emergency Department ambulatory and via private vehicle. Dr[employer] driving. --12:09 Celestine Burnette R.N. 11:00 04/17/2017 IV Fluids IV NS Discontinued: bag #1 infused upon discharge. Total amount infused: 1000 mL. IV patency established. IV site checked: no pain, redness, or swelling. IV flushed thoroughly. --12:10 Celestine Burnette R.N. 11:20 04/17/2017 Site #1 removed upon discharge. Catheter intact. Pressure dressing applied. --12:10 Celestine Burnette R.N. Locked/Released at 04/17/2017 12:12 by Celestine Burnette R.N.
--- NOTE | 2017-04-17 11:13 | ED ORDER SUMMARY ---
..... Patient: ARMAND OAKLEY OrderSheet [facility] VisitID: [id number] [place] [address] 36y, M Registration Date/Time: 04/17/2017 ORDER SHEET Weight: 63.5 kg (stated) Allergies: Acetaminophen, NSAIDs, Sulfa Antibiotics GENERAL ORDERS: CBC w Diff Urgent (09:04/17/2017 Kalee Voss) (Ack 9:57 PWeiler ER Tech1) (10:01 LWhalen R.N.) CMP Urgent (:04/17/2017 Kalee Voss) (Ack 9:57 PWeiler ER Tech1) (10:01 LWhalen R.N.) UA-Culture if indicated Urgent (:04/17/2017 Kalee Voss) (Ack 9:57 PWeiler ER Tech1) (10:59 LWhalen R.N.) Amylase Urgent (:04/17/2017 Kalee Voss) (Ack 9:57 PWeiler ER Tech1) (10:01 LWhalen R.N.) Lipase Urgent (09:04/17/2017 Kalee Voss) (Ack 9:57 PWeiler ER Tech1) (10:01 LWhalen R.N.) Urine Drug Screen Urgent (:04/17/2017 Kalee Voss) (Ack 9:57 PWeiler ER Tech1) (10:59 LWhalen R.N.) Ethyl Alcohol Urgent (10:20 04/17/2017 Kalee Voss) (Ack 10:22 PWeiler ER Tech1) (10:34 PWeiler ER Tech1) MEDICATION ORDERS: IV FLUIDS: IV NS : initial bolus none -, then 1000 mL/hr for X1 (NOW) (09:04/17/2017 Kalee Voss) (10:01 LWhalen R.N.) Zofran IV 4 mg (NOW) (:04/17/2017 Kalee Voss) (10:01 LWhalen R.N.) Famotidine IV 20 mg/50mL (NOW) (:04/17/2017 Kalee Voss) (10:01 LWcarmelita R.N.) Benadryl IV 25 mg (NOW) (10:08 04/17/2017 Charli Og verbal order read back to Kalee Voss) (10:09 LWcarmelita HodgeN.) Morphine IV 4 mg (HIGH ALERT MEDICATION, NOW) (10:26 04/17/2017 Kalee Voss) (10:59 LWcarmelita Og) Zofran IV 4 mg (NOW) (11:15 04/17/2017 Kalee Voss) (11:39 LWcarmelita Perez.N.) ORDER SHEET NOTES: [Electronically signed by Angelito Camarena Dr. (11:40 04/17/2017)] [Electronically signed by Celestine Burnette R.N. (12:12 04/17/2017)] [Electronically locked/signed by Celestine Burnette R.N. (12:12 04/17/2017)]
--- NOTE | 2017-04-17 12:13 | ED DISCHARGE INSTRUCTIONS ---
Patient: ARMAND OAKLEY General Instructions [facility] VisitID: [id number] [place] [address] 36y, M Registration Date/Time: 04/17/2017 Intractable vomiting with nausea. No dehydration or volume depletion. Not bilious. INSTRUCTIONS Your Current Medications: CONTINUE TAKING THE FOLLOWING MEDICATIONS: Reglan Oral : 10 mg 4x a day. Prescription Medications: Zofran (orally disintegrating tablets) 4 mg: take 1 orally every 6 hours as needed for nausea and vomiting. Dispense ten (10). One refill. Substitution is permissible. Follow-up: Follow up with your doctor in about two days. Call for an appointment. Screening today revealed the patient's blood pressure to be in the hypertensive range. The patient should follow up with a primary care provider for blood pressure management. ADDITIONAL INFORMATION Vomiting [6Yr-Adult] Vomiting is a common symptom that may be due to different causes. These include gastroenteritis ("stomach flu"), food poisoning and gastritis. There are other more serious causes of vomiting which may be hard to diagnose early in the illness. Therefore, it is important to watch for the warning signs listed below. The main danger from repeated vomiting is dehydration. This is due to excess loss of water and minerals from the body. When this occurs, body fluids must be replaced. Home Care: If symptoms are severe, rest at home for the next 24 hours. You may use acetaminophen (Tylenol) or ibuprofen (Motrin, Advil) to control fever, unless another medicine was prescribed. [NOTE : If you have chronic liver or kidney disease or ever had a stomach ulcer or GI bleeding, talk with your doctor before using these medicines.] (Aspirin should never be used in anyone under 18 years of age who is ill with a fever. It may cause severe liver damage.) Avoid tobacco and alcohol use, which may worsen your symptoms. If medicines for vomiting were prescribed, take as directed. Once vomiting stops, then follow these guidelines: During The First 12-24 Hours follow the diet below: FRUIT JUICES: Apple, grape juice, clear fruit drinks, and electrolyte replacement drinks. BEVERAGES: Soft drinks without caffeine; mineral water (plain or flavored), decaffeinated tea and coffee. SOUPS: Clear broth, consomm and bouillon DESSERTS: Plain gelatin, popsicles and fruit juice bars. As you feel better, you may add 6-8 ounces of yogurt per day. During The Next 24 Hours you may add the following to the above: Hot cereal, plain toast, bread, rolls, crackers Plain noodles, rice, mashed potatoes, chicken noodle or rice soup Unsweetened canned fruit (avoid pineapple), bananas Limit caffeine and chocolate. No spices or seasonings except salt. During The Next 24 Hours Gradually resume a normal diet, as you feel better and your symptoms lessen. Follow Up with your doctor as advised if you are not improving over the next 2-3 days. Get Prompt Medical Attention if any of the following occur: Constant right-sided lower abdominal pain or increasing general abdominal pain Continued vomiting (unable to keep liquids down) for 24 hours Frequent diarrhea (more than 5 times a day); blood (red or black color) or mucus in diarrhea Reduced urine output or extreme thirst Weakness, dizziness or fainting Unusually drowsy or confused Fever of 100.4F (38C) oral or higher, not better with fever medication Yellow color of the eyes or skin Ondansetron Oral disintegrating tablet What is this medicine? ONDANSETRON (on KOBI se fanny) is used to treat nausea and vomiting caused by chemotherapy. It is also used to prevent or treat nausea and vomiting after surgery. How should I use this medicine? These tablets are made to dissolve in the mouth. Do not try to push the tablet through the foil backing. With dry hands, peel away the foil backing and gently remove the tablet. Place the tablet in the mouth and allow it to dissolve, then swallow. While you may take these tablets with water, it is not necessary to do so. Talk to your inside sales lead regarding the use of this medicine in children. Special care may be needed. What side effects may I notice from receiving this medicine? Side effects that you should report to your doctor or health professional healthcare representative as soon as possible: allergic reactions like skin rash, itching or hives, swelling of the face, lips, or tongue breathing problems dizziness fast or irregular heartbeat feeling faint or lightheaded, falls fever and chills swelling of the hands and feet tightness in the chest Side effects that usually do not require medical attention (report to your doctor or health professional healthcare representative if they continue or are bothersome): constipation or diarrhea headache What may interact with this medicine? Do not take this medicine with any of the following medications: -apomorphine -cisapride -dofetilide -dronedarone -pimozide -thioridazine -ziprasidone This medicine may also interact with the following medications: -carbamazepine -phenytoin -rifampicin -tramadol -other medicines that prolong the QT interval (cause an abnormal heart rhythm) What if I miss a dose? If you miss a dose, take it as soon as you can. If it is almost time for your next dose, take only that dose. Do not take double or extra doses. Where should I keep my medicine? Keep out of the reach of children. Store between 2 and 30 degrees C (36 and 86 degrees F). Throw away any unused medicine after the expiration date. What should I tell my health care provider before I take this medicine? They need to know if you have any of these conditions: heart disease history of irregular heartbeat liver disease low levels of magnesium or potassium in the blood an unusual or allergic reaction to ondansetron, granisetron, other medicines, foods, dyes, or preservatives or trying to get breast-feeding What should I watch for while using this medicine? Check with your doctor or health professional healthcare representative as soon as you can if you have any sign of an allergic reaction. You have been given the following additional information: Vomiting (6Y-Adult) Ondansetron Oral disintegrating tablet (Electronically signed by Angelito Camarena Dr. 04/17/2017 11:40)
--- NOTE | 2017-04-17 12:13 | ED MAR SUMMARY ---
..... Medication Administration Record [facility] [address] [place] [address] Patient: ARMAND OAKLEY Visit ID: [id number] 36y, M Weight: 63.5 kg Height/Length: 69 in BMI: 20.7 ALLERGIES: Acetaminophen, NSAIDs, Sulfa Antibiotics Start 10:04/17/2017 Celestien Burnette R.N., Stop 11:00 04/17/2017 Celestine Burnette R.N. Medication Administered: IV NS (SALINE), Dose: IV Fluids over 1 hour(s), Rate: 1000 mL/hr, Dispensed: 1000 mL bag, Site: #1 left AC. Medication Ordered: IV NS : initial bolus none -, then 1000 mL/hr for X1 (NOW). Given 10:04/17/2017 Celestine Burnette R.N. Medication Administered: ZOFRAN [IVP] (ONDANSETRON HCL), Dose: 4 mg IVP over 2 minute(s), Site: #1 left AC. Medication Ordered: Zofran IV 4 mg (NOW). Given 10:04/17/2017 Celestine Burnette R.N. Medication Administered: FAMOTIDINE [IVP], Dose: 20 mg IVP over 0.5 hour(s), Site: #1 left AC. Medication Ordered: Famotidine IV 20 mg/50mL (NOW). Given 10:09 04/17/2017 Celestine Burnette R.N. Medication Administered: BENADRYL [IVP] (DIPHENHYDRAMINE HCL), Dose: 25 mg IVP over 2 minute(s), Site: #1 left AC. Medication Ordered: Benadryl IV 25 mg (NOW). Given 10:54 04/17/2017 Celestine Burnette R.N. Medication Administered: MORPHINE [IVP], Dose: 4 mg IVP over 2 minute(s), Site: #1 left AC. Medication Ordered: Morphine IV 4 mg (HIGH ALERT MEDICATION, NOW). Given 11:29 04/17/2017 Celestine Burnette R.N. Medication Administered: ZOFRAN [IVP] (ONDANSETRON HCL), Dose: 4 mg IVP over 2 minute(s), Site: #1. Medication Ordered: Zofran IV 4 mg (NOW).
--- NOTE | 2017-04-17 12:13 | ED MED RECONCILIATION SUMMARY ---
Patient: ARMAND OAKLEY Medication Reconciliation Report [facility] VisitID: [id number] [address] [place] [address] 36y, M Registration Date/Time: 04/17/2017 Weight: 63.5 kg Height/Length: 69 in. BMI: 20.7 ALLERGIES: Acetaminophen, NSAIDs, Sulfa Antibiotics The patient's Home Medications are listed below: CONTINUE TAKING THE FOLLOWING MEDICATIONS: Reglan Oral 10 mg, 4x a day The source(s) of the original Home Medication information: Not obtained. The following Medications were given to the patient in the Emergency Department: IV NS IV Fluids bolus 0, then 1000 mL/hr, administered: 04/17/2017 10:01:00 AM Zofran [IVP] IVP 4 mg, administered: 04/17/2017 10:01:00 AM Famotidine [IVP] IVP 20 mg, administered: 04/17/2017 10:01:00 AM Benadryl [IVP] IVP 25 mg, administered: 04/17/2017 10:09:00 AM Morphine [IVP] IVP 4 mg, administered: 04/17/2017 10:54:00 AM Zofran [IVP] IVP 4 mg, administered: 04/17/2017 11:29:00 AM The following Medications were prescribed to the patient: Zofran (orally disintegrating tablets) 4 mg: take 1 orally every 6 hours as needed for nausea and vomiting. Dispense ten (10). One refill. Substitution is permissible. -- Angelito Camarena Dr.
--- NOTE | 2017-04-17 12:13 | ED DISCHARGE INSTRUCTIONS ---
Patient: ARMAND OAKLEY General Instructions [facility] VisitID: [id number] [place] [address] 36y, M Registration Date/Time: 04/17/2017 Intractable vomiting with nausea. No dehydration or volume depletion. Not bilious. INSTRUCTIONS Your Current Medications: CONTINUE TAKING THE FOLLOWING MEDICATIONS: Reglan Oral : 10 mg 4x a day. Prescription Medications: Zofran (orally disintegrating tablets) 4 mg: take 1 orally every 6 hours as needed for nausea and vomiting. Dispense ten (10). One refill. Substitution is permissible. Follow-up: Follow up with your doctor in about two days. Call for an appointment. Screening today revealed the patient's blood pressure to be in the hypertensive range. The patient should follow up with a primary care provider for blood pressure management. ADDITIONAL INFORMATION Vomiting [6Yr-Adult] Vomiting is a common symptom that may be due to different causes. These include gastroenteritis ("stomach flu"), food poisoning and gastritis. There are other more serious causes of vomiting which may be hard to diagnose early in the illness. Therefore, it is important to watch for the warning signs listed below. The main danger from repeated vomiting is dehydration. This is due to excess loss of water and minerals from the body. When this occurs, body fluids must be replaced. Home Care: If symptoms are severe, rest at home for the next 24 hours. You may use acetaminophen (Tylenol) or ibuprofen (Motrin, Advil) to control fever, unless another medicine was prescribed. [NOTE : If you have chronic liver or kidney disease or ever had a stomach ulcer or GI bleeding, talk with your doctor before using these medicines.] (Aspirin should never be used in anyone under 18 years of age who is ill with a fever. It may cause severe liver damage.) Avoid tobacco and alcohol use, which may worsen your symptoms. If medicines for vomiting were prescribed, take as directed. Once vomiting stops, then follow these guidelines: During The First 12-24 Hours follow the diet below: FRUIT JUICES: Apple, grape juice, clear fruit drinks, and electrolyte replacement drinks. BEVERAGES: Soft drinks without caffeine; mineral water (plain or flavored), decaffeinated tea and coffee. SOUPS: Clear broth, consomm and bouillon DESSERTS: Plain gelatin, popsicles and fruit juice bars. As you feel better, you may add 6-8 ounces of yogurt per day. During The Next 24 Hours you may add the following to the above: Hot cereal, plain toast, bread, rolls, crackers Plain noodles, rice, mashed potatoes, chicken noodle or rice soup Unsweetened canned fruit (avoid pineapple), bananas Limit caffeine and chocolate. No spices or seasonings except salt. During The Next 24 Hours Gradually resume a normal diet, as you feel better and your symptoms lessen. Follow Up with your doctor as advised if you are not improving over the next 2-3 days. Get Prompt Medical Attention if any of the following occur: Constant right-sided lower abdominal pain or increasing general abdominal pain Continued vomiting (unable to keep liquids down) for 24 hours Frequent diarrhea (more than 5 times a day); blood (red or black color) or mucus in diarrhea Reduced urine output or extreme thirst Weakness, dizziness or fainting Unusually drowsy or confused Fever of 100.4F (38C) oral or higher, not better with fever medication Yellow color of the eyes or skin Ondansetron Oral disintegrating tablet What is this medicine? ONDANSETRON (on KOBI se fanny) is used to treat nausea and vomiting caused by chemotherapy. It is also used to prevent or treat nausea and vomiting after surgery. How should I use this medicine? These tablets are made to dissolve in the mouth. Do not try to push the tablet through the foil backing. With dry hands, peel away the foil backing and gently remove the tablet. Place the tablet in the mouth and allow it to dissolve, then swallow. While you may take these tablets with water, it is not necessary to do so. Talk to your staff development nurse regarding the use of this medicine in children. Special care may be needed. What side effects may I notice from receiving this medicine? Side effects that you should report to your doctor or health child care sitter as soon as possible: allergic reactions like skin rash, itching or hives, swelling of the face, lips, or tongue breathing problems dizziness fast or irregular heartbeat feeling faint or lightheaded, falls fever and chills swelling of the hands and feet tightness in the chest Side effects that usually do not require medical attention (report to your doctor or health child care sitter if they continue or are bothersome): constipation or diarrhea headache What may interact with this medicine? Do not take this medicine with any of the following medications: -apomorphine -cisapride -dofetilide -dronedarone -pimozide -thioridazine -ziprasidone This medicine may also interact with the following medications: -carbamazepine -phenytoin -rifampicin -tramadol -other medicines that prolong the QT interval (cause an abnormal heart rhythm) What if I miss a dose? If you miss a dose, take it as soon as you can. If it is almost time for your next dose, take only that dose. Do not take double or extra doses. Where should I keep my medicine? Keep out of the reach of children. Store between 2 and 30 degrees C (36 and 86 degrees F). Throw away any unused medicine after the expiration date. What should I tell my health care provider before I take this medicine? They need to know if you have any of these conditions: heart disease history of irregular heartbeat liver disease low levels of magnesium or potassium in the blood an unusual or allergic reaction to ondansetron, granisetron, other medicines, foods, dyes, or preservatives or trying to get breast-feeding What should I watch for while using this medicine? Check with your doctor or health child care sitter as soon as you can if you have any sign of an allergic reaction. You have been given the following additional information: Vomiting (6Y-Adult) Ondansetron Oral disintegrating tablet (Electronically signed by Angelito Camarena Dr. 04/17/2017 11:40)
--- NOTE | 2017-04-17 12:13 | ED MAR SUMMARY ---
..... Medication Administration Record Merged With [facility] [address] [place] [address] Patient: ARMAND OAKLEY Visit ID: [id number] 36y, M Weight: 63.5 kg Height/Length: 69 in BMI: 20.7 ALLERGIES: Acetaminophen, NSAIDs, Sulfa Antibiotics Start 10:04/17/2017 Celestine Burnette R.N., Stop 11:00 04/17/2017 Celestine Burentte R.N. Medication Administered: IV NS (SALINE), Dose: IV Fluids over 1 hour(s), Rate: 1000 mL/hr, Dispensed: 1000 mL bag, Site: #1 left AC. Medication Ordered: IV NS : initial bolus none -, then 1000 mL/hr for X1 (NOW). Given 10:04/17/2017 Celestine Burnette R.N. Medication Administered: ZOFRAN [IVP] (ONDANSETRON HCL), Dose: 4 mg IVP over 2 minute(s), Site: #1 left AC. Medication Ordered: Zofran IV 4 mg (NOW). Given 10:04/17/2017 Celestine Burnette R.N. Medication Administered: FAMOTIDINE [IVP], Dose: 20 mg IVP over 0.5 hour(s), Site: #1 left AC. Medication Ordered: Famotidine IV 20 mg/50mL (NOW). Given 10:09 04/17/2017 Celestine Burnette R.N. Medication Administered: BENADRYL [IVP] (DIPHENHYDRAMINE HCL), Dose: 25 mg IVP over 2 minute(s), Site: #1 left AC. Medication Ordered: Benadryl IV 25 mg (NOW). Given 10:54 04/17/2017 Celestine Burnette R.N. Medication Administered: MORPHINE [IVP], Dose: 4 mg IVP over 2 minute(s), Site: #1 left AC. Medication Ordered: Morphine IV 4 mg (HIGH ALERT MEDICATION, NOW). Given 11:29 04/17/2017 Celestine Burnette R.N. Medication Administered: ZOFRAN [IVP] (ONDANSETRON HCL), Dose: 4 mg IVP over 2 minute(s), Site: #1. Medication Ordered: Zofran IV 4 mg (NOW).
--- NOTE | 2017-04-17 12:13 | ED MED RECONCILIATION SUMMARY ---
Patient: ARMAND OAKLEY Medication Reconciliation Report [facility] VisitID: [id number] [address] [place] [address] 36y, M Registration Date/Time: 04/17/2017 Weight: 63.5 kg Height/Length: 69 in. BMI: 20.7 ALLERGIES: Acetaminophen, NSAIDs, Sulfa Antibiotics The patient's Home Medications are listed below: CONTINUE TAKING THE FOLLOWING MEDICATIONS: Reglan Oral 10 mg, 4x a day The source(s) of the original Home Medication information: Not obtained. The following Medications were given to the patient in the Emergency Department: IV NS IV Fluids bolus 0, then 1000 mL/hr, administered: 04/17/2017 10:01:00 AM Zofran [IVP] IVP 4 mg, administered: 04/17/2017 10:01:00 AM Famotidine [IVP] IVP 20 mg, administered: 04/17/2017 10:01:00 AM Benadryl [IVP] IVP 25 mg, administered: 04/17/2017 10:09:00 AM Morphine [IVP] IVP 4 mg, administered: 04/17/2017 10:54:00 AM Zofran [IVP] IVP 4 mg, administered: 04/17/2017 11:29:00 AM The following Medications were prescribed to the patient: Zofran (orally disintegrating tablets) 4 mg: take 1 orally every 6 hours as needed for nausea and vomiting. Dispense ten (10). One refill. Substitution is permissible. -- Angelito Camarena Dr.
== END 2017-04-17 11:20 | disposition home or self-care (01) ==
LOC: ED SRH 09:43
DX: R11.2 Nausea with vomiting, unspecified (principal); K50.90 Crohn's disease, unspecified, without complications; I10 Essential (primary) hypertension; Z88.2 Allergy status to sulfonamides; Z88.5 Allergy status to narcotic agent; Z88.6 Allergy status to analgesic agent; Z85.038 Personal history of other malignant neoplasm of large intestine
CPT/HCPCS: 90004; 90100; 92010; 92235; 92530; 92760; 92761; 92762; 92763; 92764; 92765; 92766; 92767; 95059